=== PATIENT | male | born 1945 | race Caucasian/White ===

== ENCOUNTER → 2016-04-08 | Outpatient (REF) | payer MEDICARE, OTHER ==
[2016-04-08 12:47] LABS: ALBUMIN/GLOBULIN RATIO 1.29 (1.00-1.93); BILIRUBIN,TOTAL 0.5 MG/DL (0.2-1.0); CALCIUM LEVEL 9.3 MG/DL (8.8-10.2); CREATININE FOR GFR 1.33 MG/DL (0.70-1.30); GLOMERULAR FILTRATION RATE 56.6 (>42); POTASSIUM SERUM 4.6 MEQ/L (3.5-5.1); TOTAL PROTEIN 7.1 GM/DL (6.4-8.2)
== END ==
LOC: M LABDRAW1 11:51
PROVIDERS: ATTEND Family Medicine
DX: I11.9 Hypertensive heart disease without heart failure (principal); E11.9 Type 2 diabetes mellitus without complications

== ENCOUNTER 2016-05-05 23:57 | Emergency (ER) | payer MEDICARE, OTHER ==
[2016-05-06 01:42] LABS: BASO # 0.1 K/mm3 (0.0-0.2); BASO % 0.8 % (0.0-1.0); EOS # 0.1 K/mm3 (0.0-0.50); EOS % 1.8 % (0.0-3.0); LARGE UNSTAINED CELL # 0.2 K/mm3 (0.0-0.4); LARGE UNSTAINED CELL % 1.9 % (0.0-4.0); LYMPH # 1.5 K/mm3 (1.5-4.5); LYMPH % 19.4 % (24.0-44.0); MEAN CORPUSCULAR HEMOGLOBIN 30.7 pg (27.0-33.0); MEAN CORPUSCULAR HGB CONC 33.6 g/dl (32.0-36.5); MEAN CORPUSCULAR VOLUME 91.4 fl (80.0-96.0); MONO # 0.5 K/mm3 (0.0-0.8); MONO % 6.5 % (0.0-5.0); NEUTROPHILS # 5.4 K/mm3 (1.8-7.7); NEUTROPHILS % 69.6 % (36.0-66.0); PLATELET COUNT, AUTOMATED 285 k/mm3 (150-450); RED CELL DISTRIBUTION WIDTH 12.6 % (11.5-14.5); WHITE BLOOD COUNT 7.7 K/mm3 (4.0-10.0)
--- NOTE | 2016-05-06 01:50 | REPUSA ---
CT of the head Clinical history: fall. Protocol: Multiple axial CT images obtained with 5 mm slice thickness were obtained through the head without administration of contrast. Findings: The ventricles and sulci are symmetric but prominent in size bilaterally. There is a tiny a mount of subdural blood demonstrated in the right occipital lobe. There is no midline shift, mass eff ect, or extra-axial fluid collection. The osseous structures are unremarkable. The visualized paranas al sinuses and mastoid air cells are clear. Impression: 1. Tiny amount of acute subdural blood in the right occipital lobe. No surrounding mass effect or john ma. 2. Mild age-related atrophy and chronic small vessel ischemic disease. Dr. Tolbert was notified of these findings at 1:41 AM on 05/06/2016.
[2016-05-06 02:08] LABS: ANION GAP 9 MEQ/L (8-16); BLOOD UREA NITROGEN 37 MG/DL (7-18); CALCIUM LEVEL 8.9 MG/DL (8.8-10.2); CARBON DIOXIDE LEVEL 26 MEQ/L (21-32); CHLORIDE LEVEL 106 MEQ/L (98-107); CREATININE FOR GFR 1.51 MG/DL (0.70-1.30); GLOMERULAR FILTRATION RATE 48.9 (>42); GLUCOSE, FASTING 162 MG/DL (83-110); POTASSIUM SERUM 3.7 MEQ/L (3.5-5.1); SODIUM LEVEL 141 MEQ/L (136-145); VENOUS BASE EXCESS -0.7 (-2.0-2.0); VENOUS O2 SATURATION 94.4 % (60.0-80.0); VENOUS PARTIAL PRESSURE CO2 42.1 mmHg (38.0-50.0); VENOUS PARTIAL PRESSURE O2 73.7 mmHg (30.0-50.0); VENOUS STANDARD HCO3 23.8 MEQ/L; VENOUS TOTAL CO2 25.7 MEQ/L (24.0-28.0)
[2016-05-06 02:42] LABS: INR 0.94
[2016-05-06] MEDS ORDERED: niMODipine 30 MG CAP PO ONE (03:30)
--- NOTE | 2016-05-06 03:53 | EDDOCDS ---
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 now pt doesn't recall what happened having hard time remember names of known family.pt complains of headache occipital skull. Adult Sepsis Screening: Patient has new or worsening altered mentation (1 point). Patient's respiratory rate is less than 22. Systolic blood pressure is greater than 100. Patient has a qSOFA score of 0- Negative Sepsis Screen. Suicide/Homicide risk assessment- the patient denies having any suicidal and/or homicidal ideations and does not present with any other emotional, behavioral or mental health complaints. Status: Patient is not a sales service representative or dependent. Transition of care: patient was not received from another setting of care. 00:06 Acuity: LAURIE Level 3 cz 00:06 Method Of Arrival: Walkin/Carried/Asstd cz Triage Assessment: 00:12 General: Appears uncomfortable. Pain: Location: scalp Pain currently is 2 out of 10 on cz a pain scale. Historical: - Allergies: No known drug Allergies; - Home Meds: 1. metformin 500 mg Oral tab QID 2. atorvastatin 10 mg oral tab once daily 3. omeprazole 20 mg Oral cpDR one tab every other day 4. hydrocholorothiazide daily 12.5mg 5. escitalopram oxalate 20 mg oral tab once daily 6. aspirin 81 mg Oral tbef 7. Jardiance 10 mg oral tab - PMHx: Diabetes - NIDDM: controlled; Hypercholesterolemia; Hypertension; GERD; - Social history: Smoking status: Patient states former smoker of tobacco. No barriers to communication noted, The patient speaks fluent Jamaican, Speaks appropriately for age. - Family history: Not pertinent. - : The pt / caregiver states he / she is not on anticoagulants. Home medication list is obtained from family members. - Exposure Risk Screening:: None identified. Screenin:34 Screening information is obtained from the patient. Fall risk: At risk due to prior js15 history of falls, The following interventions are performed due to a positive Fall Risk Screen: side rails up x2, bed in low position, call light in reach, in view of nurses station, family at bedside. Assistance ADL's: requires no assistance with activities of daily living. Abuse/DV Screen: The patient / caregiver reports he/she is: not in a situation that causes fear, pain or injury. Nutritional screening: No deficits noted. Advance Directives: There is no active DNR order. home support is adequate. Assessment: 01:33 General: Appears in no apparent distress, comfortable, Behavior is appropriate for age, js15 cooperative. Pain: Denies pain. Neurological: Level of Consciousness is awake, alert, obeys commands, Oriented to person, place, time. Neurological: Reports a syncopal episode. Cardiovascular: Capillary refill < 3 seconds Heart tones S1 S2 present Rhythm is regular. Respiratory: Airway is patent Respiratory effort is even, unlabored, Respiratory pattern is regular, symmetrical, Breath sounds are clear bilaterally. GI: Abdomen is non- distended Bowel sounds present X 4 quads. Derm: Skin is pink, warm & dry. Musculoskeletal: Capillary refill < 3 seconds Swelling absent. 02:30 Reassessment: Patient appears in no apparent distress at this time. Patient denies pain js15 at this time. Pt awake and alert, talking with family at bedside and resting comfortably on stretcher, respirations even and unlabored; skin pink, warm, dry. 03:30 Reassessment: Patient appears in no apparent distress at this time. Patient denies pain js15 at this time. Pt sitting on stretcher, talking to at bedside; respirations even and unlabored; skin pink, warm, dry. Vital Signs: 00:12 BP 176 / 93; Pulse 81; Resp 16; Temp 96(O); Weight 99.79 kg; Height 5 ft. 9 in. (175.26 cz cm); 01:18 BP 162 / 93 (auto/); js15 01:19 Pulse 80 MON; Pulse Ox 96% ; js15 01:30 BP 164 / 84 (auto/); js15 01:31 Pulse 79 MON; Pulse Ox 95% ; js15 01:41 BP 142 / 83 (auto/); js15 01:41 Pulse 83 MON; Pulse Ox 95% ; js15 01:56 BP 143 / 82 (auto/); js15 01:56 Pulse 80 MON; Pulse Ox 96% ; js15 02:02 Pulse 78 MON; Pulse Ox 96% ; js15 02:02 BP 138 / 78 LA Supine (auto/reg); js15 02:03 BP 144 / 83 LA Sitting (auto/reg); Pulse 80; Resp 18; Pulse Ox 96% on R/A; js15 02:06 BP 153 / 89 (auto/); js15 02:06 Pulse 79 MON; Pulse Ox 96% ; js15 02:08 BP 153 / 89; Pulse 93; Resp 20; Pulse Ox 96% on R/A; js15 02:11 BP 153 / 76 (auto/); js15 02:11 Pulse 82 MON; Pulse Ox 95% ; js15 02:26 BP 138 / 63 (auto/); js15 02:26 Pulse 81 MON; Pulse Ox 96% ; js15 02:41 BP 136 / 64 (auto/); js15 02:42 Pulse 80 MON; Pulse Ox 95% ; js15 02:56 Pulse 82 MON; Pulse Ox 97% ; js15 02:56 BP 164 / 70 (auto/); js15 03:11 Pulse 78 MON; Pulse Ox 95% ; js15 03:11 BP 152 / 61 (auto/); js15 03:26 BP 151 / 67 (auto/); js15 03:26 Pulse 78 MON; Pulse Ox 95% ; js15 03:40 Pulse 82 MON; Pulse Ox 96% ; js15 03:41 BP 153 / 70 (auto/); js15 03:50 BP 164 / 79; Pulse 80 MON; Resp 18; Temp 98.0(O); Pulse Ox 96% on R/A; Pain 0/10; js15 00:12 Body Mass Index 32.49 (99.79 kg, 175.26 cm) Vitals: 00:12 Log In Time: May 05, 2016 at 23:57. cz ED Course: 05/05 23:58 Patient visited by Osbaldo Barnhart Reg. pm4 23:58 Patient moved to Waiting pm4 23:59 Milton Gonzalez is Private Physician. pm4 05/06 00:00 Patient moved to Triage 1 cz 00:08 Triage Initiated cz 00:19 Patient moved to 1 11 00:49 Aditya Tolbert DO is Attending Physician. mm11 00:49 Patient visited by Aditya Tolbert DO. mm11 01:04 Patient visited by Aditya Tolbert DO. mm11 01:10 Pt greeted and oriented to ED. Patient advised of names of staff involved in care, denilson location of call richards, wait times and NPO status. Accompanied by Family Member, Patient has correct armband on for positive identification. Placed in gown. Bed in low position. Call light in reach. Side rails up X2. manager monitoring on. Pulse ox on. NIBP on. 01:10 EKG done. (by ED staff). Reviewed by Aditya Tolbert DO. denilson 01:11 Patient visited by Darshana Sewell PCA. denilson 01:33 Inserted saline lock: 18 gauge in right antecubital area The patient tolerated the js15 procedure well. 01:48 Pt & Aptt Sent. js15 01:57 CT Head Without Contrast Returned. EDMS 02:04 Urinalysis Sent. js15 02:04 Urine Culture Sent. js15 02:05 Patient visited by Vane Kellogg RN. js15 02:05 The patient / caregiver is instructed regarding the plan of care and ED course. js15 02:42 [facility] Payment Agreement was scanned into [employer] and attached to record. hs2 03:50 No procedures done that require assistance. js15 Administered Medications: 03:15 Drug: NS 0.9% 1000 ml [sodium chloride 0.9 % intravenous solution] Route: IV; Rate: 100 js15 mL/hr; Site: right antecubital; 03:40 Drug: niMODipine 60 mg Route: PO; js15 Order Results: Lab Order: Basic Metabolic Profile; SPEC'M 05/06/16 01:26 Test: GLUCOSE, FASTING; Value: 162; Range: 83-110; Abnormal: Above high normal; Units: MG/DL; Status: F Test: BLOOD UREA NITROGEN; Value: 37; Range: 7-18; Abnormal: Above high normal; Units: MG/DL; Status: F Test: CREATININE FOR GFR; Value: 1.51; Range: 0.70-1.30; Abnormal: Above high normal; Units: MG/DL; Status: F Test: GLOMERULAR FILTRATION RATE; Value: 48.9; Range: >42; Status: F Test: SODIUM LEVEL; Value: 141; Range: 136-145; Units: MEQ/L; Status: F Test: POTASSIUM SERUM; Value: 3.7; Range: 3.5-5.1; Units: MEQ/L; Status: F Test: CHLORIDE LEVEL; Value: 106; Range: 98-107; Units: MEQ/L; Status: F Test: CARBON DIOXIDE LEVEL; Value: 26; Range: 21-32; Units: MEQ/L; Status: F Test: ANION GAP; Value: 9; Range: 8-16; Units: MEQ/L; Status: F Test: CALCIUM LEVEL; Value: 8.9; Range: 8.8-10.2; Units: MG/DL; Status: F Test Note: ; Units are mL/min/1.73 m2 Chronic Kidney Disease Staging per NKF: Stage I & II GFR >=60 Normal to Mildly Decreased Stage III GFR 30-59 Moderately Decreased Stage IV GFR 15-29 Severely Decreased Stage V GFR <15 Very Little GFR Left ESRD GFR <15 on CLEANER GREASER Lab Order: CBC with Diff; SPEC'M 05/06/16 01:26 Test: WHITE BLOOD COUNT; Value: 7.7; Range: 4.0-10.0; Units: K/mm3; Status: F Test: RED BLOOD COUNT; Value: 4.43; Range: 4.30-6.10; Units: M/mm3; Status: F Test: HEMOGLOBIN; Value: 13.6; Range: 14.0-18.0; Abnormal: Below low normal; Units: g/dl; Status: F Test: HEMATOCRIT; Value: 40.5; Range: 42.0-52.0; Abnormal: Below low normal; Units: %; Status: F Test: MEAN CORPUSCULAR VOLUME; Value: 91.4; Range: 80.0-96.0; Units: fl; Status: F Test: MEAN CORPUSCULAR HEMOGLOBIN; Value: 30.7; Range: 27.0-33.0; Units: pg; Status: F Test: MEAN CORPUSCULAR HGB CONC; Value: 33.6; Range: 32.0-36.5; Units: g/dl; Status: F Test: RED CELL DISTRIBUTION WIDTH; Value: 12.6; Range: 11.5-14.5; Units: %; Status: F Test: PLATELET COUNT, AUTOMATED; Value: 285; Range: 150-450; Units: k/mm3; Status: F Test: NEUTROPHILS %; Value: 69.6; Range: 36.0-66.0; Abnormal: Above high normal; Units: %; Status: F Test: LYMPH %; Value: 19.4; Range: 24.0-44.0; Abnormal: Below low normal; Units: %; Status: F Test: MONO %; Value: 6.5; Range: 0.0-5.0; Abnormal: Above high normal; Units: %; Status: F Test: EOS %; Value: 1.8; Range: 0.0-3.0; Units: %; Status: F Test: BASO %; Value: 0.8; Range: 0.0-1.0; Units: %; Status: F Test: LARGE UNSTAINED CELL %; Value: 1.9; Range: 0.0-4.0; Units: %; Status: F Test: NEUTROPHILS #; Value: 5.4; Range: 1.8-7.7; Units: K/mm3; Status: F Test: LYMPH #; Value: 1.5; Range: 1.5-4.5; Units: K/mm3; Status: F Test: MONO #; Value: 0.5; Range: 0.0-0.8; Units: K/mm3; Status: F Test: EOS #; Value: 0.1; Range: 0.0-0.50; Units: K/mm3; Status: F Test: BASO #; Value: 0.1; Range: 0.0-0.2; Units: K/mm3; Status: F Test: LARGE UNSTAINED CELL #; Value: 0.2; Range: 0.0-0.4; Units: K/mm3; Status: F Lab Order: Cardiac Injury Profile; SPEC'M 05/06/16 01:26 Test: CPK CREATINE PHOSPHOKINASE; Value: 112; Range: 39-308; Units: U/L; Status: F Test: CK-MB VALUE MASS; Value: 2.4; Range: 0.0-3.6; Units: NG/ML; Status: F Test: MB/CK RELATIVE INDEX; Value: 2.14; Range: < OR =4; Status: F Test Note: ; DIAGNOSIS CRITERIA MMB ng/ml Relative Index (RI) NON-AMI < or = 5 N/A GONZALEZ ZONE > 5 < or = 4 AMI > 5 > 4 Lab Order: Thyroid Stimulating Hormone; SPEC' 05/06/16 01:26 Test: THYROID STIMULATING HORMONE; Value: 3.530; Range: 0.358-3.740; Units: uIU/ML; Status: F Lab Order: Troponin; SPEC' 05/06/16 01:26 Test: TROPONIN I; Value: < 0.02; Range: < 0.10; Units: NG/ML; Status: F Test Note: ; Troponin I Reference Interval for [employer] LOCI: 99th Percentile= 0.00-0.045 ng/ml Risk Stratification: <= 0.10 ng/ml Decreased Risk for Adverse Clinical Events. 0.10-1.50 ng/ml Increased Risk for Adverse Clinical Events. Evaluation of additional criterion and/or repeat testing in 2-6 hours is suggested to rule out myocardial damage. >= 1.50 ng/ml Indicative of Myocardial Injury. Lab Order: Urinalysis; SPEC' 05/06/16 02:02 Test: APPEARANCE, URINE; Value: CLEAR; Range: CLEAR; Status: F Test: COLOR, URINE; Value: YELLOW; Range: YELLOW; Status: F Test: PH,URINE; Value: 5.0; Range: 5.0-9.0; Units: UNITS; Status: F Test: SPECIFIC GRAVITY URINE AUTO; Value: 1.028; Range: 1.002-1.035; Status: F Test: PROTEIN, URINE AUTO; Value: NEGATIVE; Range: NEGATIVE; Units: mg/dL; Status: F Test: GLUCOSE, URINE (UA) AUTO; Value: 3+; Range: NEGATIVE; Abnormal: Above high normal; Units: mg/dL; Status: F Test: KETONE, URINE AUTO; Value: NEGATIVE; Range: NEGATIVE; Units: mg/dL; Status: F Test: UROBILINOGEN, URINE AUTO; Value: 0.2; Range: 0.0-2.0; Units: mg/dL; Status: F Test: BILIRUBIN, URINE AUTO; Value: NEGATIVE; Range: NEGATIVE; Status: F Test: NITRITE, URINE AUTO; Value: NEGATIVE; Range: NEGATIVE; Status: F Test: LEUKOCYTE ESTERASE, URINE AUTO; Value: NEGATIVE; Range: NEGATIVE; Status: F Test: BLOOD, URINE BLOOD; Value: NEGATIVE; Range: NEGATIVE; Status: F Test: WBC, URINE AUTO; Value: 0; Range: 0-3; Units: /HPF; Status: F Test: RBC, URINE AUTO; Value: 1; Range: 0-3; Units: /HPF; Status: F Test: BACTERIA, URINE AUTO; Value: NEGATIVE; Range: NEGATIVE; Status: F Test: SQUAMOUS EPITHELIAL CELL UR AU; Value: 0; Range: 0-6; Units: /HPF; Status: F Test: HYALINE CAST, URINE AUTO; Value: 0; Range: 0-1; Units: /LPF; Status: F Lab Order: Venous Blood Gas (large pea green tube on ice); SPEC'M 05/06/16 01:26 Test: VENOUS PH; Value: 7.381; Range: 7.330-7.430; Units: UNITS; Status: F Test: VENOUS PARTIAL PRESSURE CO2; Value: 42.1; Range: 38.0-50.0; Units: mmHg; Status: F Test: VENOUS PARTIAL PRESSURE O2; Value: 73.7; Range: 30.0-50.0; Abnormal: Above high normal; Units: mmHg; Status: F Test: VENOUS TOTAL CO2; Value: 25.7; Range: 24.0-28.0; Units: MEQ/L; Status: F Test: VENOUS HCO3; Value: 24.4; Range: 23.0-27.0; Units: MEQ/L; Status: F Test: VENOUS BASE EXCESS; Value: -0.7; Range: -2.0-2.0; Status: F Test: VENOUS STANDARD HCO3; Value: 23.8; Units: MEQ/L; Status: F Test: VENOUS O2 SATURATION; Value: 94.4; Range: 60.0-80.0; Abnormal: Above high normal; Units: %; Status: F Lab Order: Osmolality, Serum; SPEC'M 05/06/16 01:26 Test: OSMOLALITY SERUM; Value: 307; Range: 280-301; Abnormal: Above high normal; Units: MOSM/KG; Status: F Lab Order: Pt & Aptt; SPEC'M 05/06/16 01:26 Test: PROTHROMBIN TIME; Value: 12.7; Range: 12.3-14.5; Units: SECONDS; Status: F Test: INR; Value: 0.94; Status: F Test: PARTIAL THROMBOPLASTIN TIME; Value: 29.8; Range: 26.6-37.1; Units: SECONDS; Status: F Test Note: ; THERAPUTIC HUMAN INR VALUES INDICATIONS NORMAL RANGES PROPHYLAXIS/TREATMENT OF: VENOUS THROMBOSIS 2.0-3.0 PULMONARY EMBOLISM 2.0-3.0 PREVENTION OF SYSTEMIC EMBOLISM FROM: TISSUE HEART VALVES 2.0-3.0 ACUTE MYOCARDIAL INFARCTION 2.0-3.0 VALVULAR HEART DISEASE 2.0-3.0 ATRIAL FIBRILLATION 2.0-3.0 MECHANICAL VALVES(HIGH RISK) 2.5-3.5 RECURRENT MYOCARDIAL INFARCTION 2.5-3.5 Lab Order: Fingerstick Blood Sugar; SPEC'M 05/06/16 01:46 Test: BEDSIDE GLUCOSE; Value: 155; Range: 83-110; Abnormal: Above high normal; Units: MG/DL; Status: F Test Note: ; RN Notified Doctor Notified Radiology Order: CT Head Without Contrast Test: CT Head Without Contrast REASON FOR EXAMINATION: Syncope; ; CT of the head; Clinical history: fall.; Protocol: Multiple axial CT images obtained with 5 mm slice thickness were obtained through the head; without administration of contrast.; Findings: The ventricles and sulci are symmetric but prominent in size bilaterally. There is a tiny a; mount of subdural blood demonstrated in the right occipital lobe. There is no midline shift, mass eff; ect, or extra-axial fluid collection. The osseous structures are unremarkable. The visualized paranas; al sinuses and mastoid air cells are clear.; Impression:; 1. Tiny amount of acute subdural blood in the right occipital lobe. No surrounding mass effect or john; ma.; 2. Mild age-related atrophy and chronic small vessel ischemic disease.; Dr. Tolbert was notified of these findings at 1:41 AM on 05/06/2016.; ; Outcome: 02:06 CT Study completed. js15 03:00 ER care complete, transfer ordered by Provider. mm11 03:09 Admission hand-off: Report called to Ivania Bardales RN. js15 03:50 Discharge Assessment: Patient awake, alert and oriented x 3. No cognitive and/or js15 functional deficits noted. Patient verbalized understanding of disposition instructions. patient administered narcotics - no. The following High Risk Discharge criteria are identified: None. [facility]red to [facility]. by EMS ground [facility] ambulance report to accompanying personnel Lizy Lorenzo EMT-P and Leisa Basurto EMT-B. Condition: unchanged. Property :Personal belongings accompany Pt. 03:52 Patient left the ED. js15 Signatures: Dispatcher [employer] EDMS Adriano Finley, RN RN cz Aditya Tolbert, DO mm11 Darshana Sewell, SENIOR DRUPAL DEVELOPER SENIOR DRUPAL DEVELOPER Vane HarrellRN RN js15 Mayelin Thomas, Reg Reg hs2 Osbaldo Barnhart, Reg Reg pm4 [facility]
--- NOTE | 2016-05-06 03:53 | EDDOCDS ---
Physician Documentation [facility] Name: Rajesh Abrams Age: 71 yrs Sex: Male : 1945 Arrival Date: 05/05/2016 Time: 23:57 Bed 1 Private MD: Milton Gonzalez MD Disposition: 05/06/16 03:00 Transfer ordered to [facility]. 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 - Reason for transfer: Higher level of care. - Accepting physician is Dr Ferro. - Condition is Unchanged. - Problem is an ongoing problem. - Symptoms are unchanged. Historical: - Allergies: No known drug Allergies; - Home Meds: 1. metformin 500 mg Oral tab QID 2. atorvastatin 10 mg oral tab once daily 3. omeprazole 20 mg Oral cpDR one tab every other day 4. hydrocholorothiazide daily 12.5mg 5. escitalopram oxalate 20 mg oral tab once daily 6. aspirin 81 mg Oral tbef 7. Jardiance 10 mg oral tab - PMHx: Diabetes - NIDDM: controlled; Hypercholesterolemia; Hypertension; GERD; - Social history: Smoking status: Patient states former smoker of tobacco. No barriers to communication noted, The patient speaks fluent [place]ine[place], Speaks appropriately for age. - Family history: Not pertinent. - : The pt / caregiver states he / she is not on anticoagulants. Home medication list is obtained from family members. - Exposure Risk Screening:: None identified. Vital Signs: 05/06 00:12 BP 176 / 93; Pulse 81; Resp 16; Temp 96(O); Weight 99.79 kg / 220 lbs; Height 5 ft. 9 cz in. (175.26 cm); 01:18 BP 162 / 93 (auto/); 01:19 Pulse 80 MON; Pulse Ox 96% ; 01:30 BP 164 / 84 (auto/); 01:31 Pulse 79 MON; Pulse Ox 95% ; 15 01:41 BP 142 / 83 (auto/); 15 01:41 Pulse 83 MON; Pulse Ox 95% ; 15 01:56 BP 143 / 82 (auto/); 15 01:56 Pulse 80 MON; Pulse Ox 96% ; 02:02 Pulse 78 MON; Pulse Ox 96% ; 02:02 BP 138 / 78 LA Supine (auto/reg); js15 02:03 BP 144 / 83 LA Sitting (auto/reg); Pulse 80; Resp 18; Pulse Ox 96% on R/A; js15 02:06 BP 153 / 89 (auto/); js15 02:06 Pulse 79 MON; Pulse Ox 96% ; js15 02:08 BP 153 / 89; Pulse 93; Resp 20; Pulse Ox 96% on R/A; js15 02:11 BP 153 / 76 (auto/); js15 02:11 Pulse 82 MON; Pulse Ox 95% ; js15 02:26 BP 138 / 63 (auto/); js15 02:26 Pulse 81 MON; Pulse Ox 96% ; js15 02:41 BP 136 / 64 (auto/); js15 02:42 Pulse 80 MON; Pulse Ox 95% ; js15 02:56 Pulse 82 MON; Pulse Ox 97% ; js15 02:56 BP 164 / 70 (auto/); js15 03:11 Pulse 78 MON; Pulse Ox 95% ; js15 03:11 BP 152 / 61 (auto/); js15 03:26 BP 151 / 67 (auto/); js15 03:26 Pulse 78 MON; Pulse Ox 95% ; js15 03:40 Pulse 82 MON; Pulse Ox 96% ; js15 03:41 BP 153 / 70 (auto/); js15 03:50 BP 164 / 79; Pulse 80 MON; Resp 18; Temp 98.0(O); Pulse Ox 96% on R/A; Pain 0/10; js15 00:12 Body Mass Index 32.49 (99.79 kg, 175.26 cm) cz MDM: 01:05 Cutter Apprentice Hand/Pulse Ox/q 15 min VS ordered. mm11 01:05 Accucheck ordered. mm11 01:05 IV Saline Lock ordered. mm11 01:05 Orthostatic VS ordered. mm11 01:05 Rhythm Strip to chart ordered. mm11 01:06 Basic Metabolic Profile Ordered. EDMS 01:06 CBC with Diff Ordered. EDMS 01:06 Cardiac Injury Profile Ordered. EDMS 01:06 Thyroid Stimulating Hormone Ordered. EDMS 01:06 Troponin Ordered. EDMS 01:06 Urinalysis Ordered. EDMS 01:06 Urine Culture Ordered. EDMS 01:07 CT Head Without Contrast Ordered. EDMS 01:07 Chest, 1 View Ordered. EDMS 01:07 ECG WITH READING ER PHYS+CARDIAG ordered. EDMS 01:12 Venous Blood Gas (large pea green tube on ice) Ordered. EDMS 01:12 Osmolality, Serum Ordered. EDMS 01:43 Pt & Aptt Ordered. EDMS 01:55 Fingerstick Blood Sugar Ordered. EDMS 02:12 Financial registration complete. hs2 02:35 Basic Metabolic Profile Reviewed. mm11 02:35 CBC with Diff Reviewed. mm11 02:35 Venous Blood Gas (large pea green tube on ice) Reviewed. mm11 02:35 Osmolality, Serum Reviewed. mm11 02:35 Fingerstick Blood Sugar Reviewed. mm11 02:35 Cardiac Injury Profile Reviewed. mm11 02:35 Thyroid Stimulating Hormone Reviewed. mm11 02:35 Troponin Reviewed. mm11 02:35 CT Head Without Contrast Reviewed. mm11 02:42 [facility] Payment Agreement was scanned into [employer] and attached to record. hs2 02:56 niMODipine 60 mg PO once; administer 1 hour before or 2 hours after meals ordered. mm11 02:56 NS 0.9% 1000 ml IV at 100 mL/hr continuous ordered. mm11 02:56 Urinalysis Reviewed. mm11 02:56 Osmolality, Serum Reviewed. mm11 02:56 Pt & Aptt Reviewed. mm11 Administered Medications: 03:15 Drug: NS 0.9% 1000 ml [sodium chloride 0.9 % intravenous solution] Route: IV; Rate: 100 js15 mL/hr; Site: right antecubital; 03:40 Drug: niMODipine 60 mg Route: PO; js15 Signatures: Dispatcher [facility] Adriano Finley RN RN cz Maynard, Matthew, DO DO mm11 Vane Kellogg RN RN js15 Mayelin Thomas, Reg Reg hs2 The chart was reviewed and I authenticate all verbal orders and agree with the evaluation and treatment provided.Attachments: 02:42 [facility] [place] Agreement hs2 MTDD
--- NOTE | 2016-05-06 08:42 | REP ---
PORTABLE CHEST X-RAY: Single view. HISTORY: Syncope. Comparison chest x-ray April 24, 2012. FINDINGS: The lungs are symmetrically aerated and clear. There is an oval shaped radiolucency projecting in the region of the azygos venous arch. This is unchanged. It measures 2.8 cm. A lipoma in the mediastinum or conceivably an overlying pulmonary parenchymal cyst could have this appearance. In any event, it is benign and unchanged from multiple radiographs dating back to 2000. Pulmonary vasculature is not increased. Heart size is normal. Pleural angles are sharp. No significant bony abnormality is seen. IMPRESSION: No active disease. Signed by Jimmy Buckley MD 05/06/2016 12:30 P
--- NOTE | 2016-05-06 20:46 | ECGEPIP ---
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
--- NOTE | 2016-05-08 04:53 | EDDOCDS ---
Physician Documentation [facility] Name: Rajesh Abrams Age: 71 yrs Sex: Male : 1945 Arrival Date: 05/05/2016 Time: 23:57 Bed 1 Private MD: Milton Gonzalez MD Disposition: 05/06/16 03:00 Transfer ordered to [facility]. 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 - Reason for transfer: Higher level of care. - Accepting physician is Dr Ferro. - Condition is Unchanged. - Problem is an ongoing problem. - Symptoms are unchanged. Historical: - Allergies: No known drug Allergies; - Home Meds: 1. metformin 500 mg Oral tab QID 2. atorvastatin 10 mg oral tab once daily 3. omeprazole 20 mg Oral cpDR one tab every other day 4. hydrocholorothiazide daily 12.5mg 5. escitalopram oxalate 20 mg oral tab once daily 6. aspirin 81 mg Oral tbef 7. Jardiance 10 mg oral tab - PMHx: Diabetes - NIDDM: controlled; Hypercholesterolemia; Hypertension; GERD; - Social history: Smoking status: Patient states former smoker of tobacco. No barriers to communication noted, The patient speaks fluent [place] Of [place], Speaks appropriately for age. - Family history: Not pertinent. - : The pt / caregiver states he / she is not on anticoagulants. Home medication list is obtained from family members. - Exposure Risk Screening:: None identified. Vital Signs: 05/06 00:12 BP 176 / 93; Pulse 81; Resp 16; Temp 96(O); Weight 99.79 kg / 220 lbs; Height 5 ft. 9 cz in. (175.26 cm); 01:18 BP 162 / 93 (auto/); 01:19 Pulse 80 MON; Pulse Ox 96% ; 01:30 BP 164 / 84 (auto/); 01:31 Pulse 79 MON; Pulse Ox 95% ; 15 01:41 BP 142 / 83 (auto/); 15 01:41 Pulse 83 MON; Pulse Ox 95% ; 15 01:56 BP 143 / 82 (auto/); 15 01:56 Pulse 80 MON; Pulse Ox 96% ; 02:02 Pulse 78 MON; Pulse Ox 96% ; 02:02 BP 138 / 78 LA Supine (auto/reg); js15 02:03 BP 144 / 83 LA Sitting (auto/reg); Pulse 80; Resp 18; Pulse Ox 96% on R/A; js15 02:06 BP 153 / 89 (auto/); js15 02:06 Pulse 79 MON; Pulse Ox 96% ; js15 02:08 BP 153 / 89; Pulse 93; Resp 20; Pulse Ox 96% on R/A; js15 02:11 BP 153 / 76 (auto/); js15 02:11 Pulse 82 MON; Pulse Ox 95% ; js15 02:26 BP 138 / 63 (auto/); js15 02:26 Pulse 81 MON; Pulse Ox 96% ; js15 02:41 BP 136 / 64 (auto/); js15 02:42 Pulse 80 MON; Pulse Ox 95% ; js15 02:56 Pulse 82 MON; Pulse Ox 97% ; js15 02:56 BP 164 / 70 (auto/); js15 03:11 Pulse 78 MON; Pulse Ox 95% ; js15 03:11 BP 152 / 61 (auto/); js15 03:26 BP 151 / 67 (auto/); js15 03:26 Pulse 78 MON; Pulse Ox 95% ; js15 03:40 Pulse 82 MON; Pulse Ox 96% ; js15 03:41 BP 153 / 70 (auto/); js15 03:50 BP 164 / 79; Pulse 80 MON; Resp 18; Temp 98.0(O); Pulse Ox 96% on R/A; Pain 0/10; js15 00:12 Body Mass Index 32.49 (99.79 kg, 175.26 cm) cz MDM: 01:05 Scaler/Pulse Ox/q 15 min VS ordered. mm11 01:05 Accucheck ordered. mm11 01:05 IV Saline Lock ordered. mm11 01:05 Orthostatic VS ordered. mm11 01:05 Rhythm Strip to chart ordered. mm11 01:06 Basic Metabolic Profile Ordered. EDMS 01:06 CBC with Diff Ordered. EDMS 01:06 Cardiac Injury Profile Ordered. EDMS 01:06 Thyroid Stimulating Hormone Ordered. EDMS 01:06 Troponin Ordered. EDMS 01:06 Urinalysis Ordered. EDMS 01:06 Urine Culture Ordered. EDMS 01:07 CT Head Without Contrast Ordered. EDMS 01:07 Chest, 1 View Ordered. EDMS 01:07 ECG WITH READING ER PHYS+CARDIAG ordered. EDMS 01:12 Venous Blood Gas (large pea green tube on ice) Ordered. EDMS 01:12 Osmolality, Serum Ordered. EDMS 01:43 Pt & Aptt Ordered. EDMS 01:55 Fingerstick Blood Sugar Ordered. EDMS 02:12 Financial registration complete. hs2 02:35 Basic Metabolic Profile Reviewed. mm11 02:35 CBC with Diff Reviewed. mm11 02:35 Venous Blood Gas (large pea green tube on ice) Reviewed. mm11 02:35 Osmolality, Serum Reviewed. mm11 02:35 Fingerstick Blood Sugar Reviewed. mm11 02:35 Cardiac Injury Profile Reviewed. mm11 02:35 Thyroid Stimulating Hormone Reviewed. mm11 02:35 Troponin Reviewed. mm11 02:35 CT Head Without Contrast Reviewed. mm11 02:42 [place] [place] Payment Agreement was scanned into [employer] and attached to record. hs2 02:56 niMODipine 60 mg PO once; administer 1 hour before or 2 hours after meals ordered. mm11 02:56 NS 0.9% 1000 ml IV at 100 mL/hr continuous ordered. mm11 02:56 Urinalysis Reviewed. mm11 02:56 Osmolality, Serum Reviewed. mm11 02:56 Pt & Aptt Reviewed. mm11 10:43 T-Sheet-- Draft Copy was scanned into [employer] and attached to record. gb 10:43 ECG/EKG was scanned into [employer] and attached to record. gb 10:44 Radiology Report was scanned into [employer] and attached to record. gb Administered Medications: 03:15 Drug: NS 0.9% 1000 ml [sodium chloride 0.9 % intravenous solution] Route: IV; Rate: 100 js15 mL/hr; Site: right antecubital; 03:40 Drug: niMODipine 60 mg Route: PO; js15 Signatures: Dispatcher MedHost EDMS Adriano Finley RN RN cz Elena Alvarez, Reg Reg gb Aditya Tolbert DO DO mm11 Vane Kellogg RN RN js15 Mayelin Thomas, Reg Reg hs2 The chart was reviewed and I authenticate all verbal orders and agree with the evaluation and treatment provided.Attachments: 02:42 [facility] [place] Payment Agreement hs2 10:43 T-Sheet-- Draft Copy gb 10:43 ECG/EKG gb Chart Complete MTDD
--- NOTE | 2016-05-08 04:53 | EDDOCDS ---
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 now pt doesn't recall what happened having hard time remember names of known family.pt complains of headache occipital skull. Adult Sepsis Screening: Patient has new or worsening altered mentation (1 point). Patient's respiratory rate is less than 22. Systolic blood pressure is greater than 100. Patient has a qSOFA score of 0- Negative Sepsis Screen. Suicide/Homicide risk assessment- the patient denies having any suicidal and/or homicidal ideations and does not present with any other emotional, behavioral or mental health complaints. Status: Patient is not a servicer or dependent. Transition of care: patient was not received from another setting of care. 00:06 Acuity: LAURIE Level 3 cz 00:06 Method Of Arrival: Walkin/Carried/Asstd cz Triage Assessment: 00:12 General: Appears uncomfortable. Pain: Location: scalp Pain currently is 2 out of 10 on cz a pain scale. Historical: - Allergies: No known drug Allergies; - Home Meds: 1. metformin 500 mg Oral tab QID 2. atorvastatin 10 mg oral tab once daily 3. omeprazole 20 mg Oral cpDR one tab every other day 4. hydrocholorothiazide daily 12.5mg 5. escitalopram oxalate 20 mg oral tab once daily 6. aspirin 81 mg Oral tbef 7. Jardiance 10 mg oral tab - PMHx: Diabetes - NIDDM: controlled; Hypercholesterolemia; Hypertension; GERD; - Social history: Smoking status: Patient states former smoker of tobacco. No barriers to communication noted, The patient speaks fluent [place], Speaks appropriately for age. - Family history: Not pertinent. - : The pt / caregiver states he / she is not on anticoagulants. Home medication list is obtained from family members. - Exposure Risk Screening:: None identified. Screenin:34 Screening information is obtained from the patient. Fall risk: At risk due to prior js15 history of falls, The following interventions are performed due to a positive Fall Risk Screen: side rails up x2, bed in low position, call light in reach, in view of nurses station, family at bedside. Assistance ADL's: requires no assistance with activities of daily living. Abuse/DV Screen: The patient / caregiver reports he/she is: not in a situation that causes fear, pain or injury. Nutritional screening: No deficits noted. Advance Directives: There is no active DNR order. home support is adequate. Assessment: 01:33 General: Appears in no apparent distress, comfortable, Behavior is appropriate for age, js15 cooperative. Pain: Denies pain. Neurological: Level of Consciousness is awake, alert, obeys commands, Oriented to person, place, time. Neurological: Reports a syncopal episode. Cardiovascular: Capillary refill < 3 seconds Heart tones S1 S2 present Rhythm is regular. Respiratory: Airway is patent Respiratory effort is even, unlabored, Respiratory pattern is regular, symmetrical, Breath sounds are clear bilaterally. GI: Abdomen is non- distended Bowel sounds present X 4 quads. Derm: Skin is pink, warm & dry. Musculoskeletal: Capillary refill < 3 seconds Swelling absent. 02:30 Reassessment: Patient appears in no apparent distress at this time. Patient denies pain js15 at this time. Pt awake and alert, talking with family at bedside and resting comfortably on stretcher, respirations even and unlabored; skin pink, warm, dry. 03:30 Reassessment: Patient appears in no apparent distress at this time. Patient denies pain js15 at this time. Pt sitting on stretcher, talking to at bedside; respirations even and unlabored; skin pink, warm, dry. Vital Signs: 00:12 BP 176 / 93; Pulse 81; Resp 16; Temp 96(O); Weight 99.79 kg; Height 5 ft. 9 in. (175.26 cz cm); 01:18 BP 162 / 93 (auto/); js15 01:19 Pulse 80 MON; Pulse Ox 96% ; js15 01:30 BP 164 / 84 (auto/); js15 01:31 Pulse 79 MON; Pulse Ox 95% ; js15 01:41 BP 142 / 83 (auto/); js15 01:41 Pulse 83 MON; Pulse Ox 95% ; js15 01:56 BP 143 / 82 (auto/); js15 01:56 Pulse 80 MON; Pulse Ox 96% ; js15 02:02 Pulse 78 MON; Pulse Ox 96% ; js15 02:02 BP 138 / 78 LA Supine (auto/reg); js15 02:03 BP 144 / 83 LA Sitting (auto/reg); Pulse 80; Resp 18; Pulse Ox 96% on R/A; js15 02:06 BP 153 / 89 (auto/); js15 02:06 Pulse 79 MON; Pulse Ox 96% ; js15 02:08 BP 153 / 89; Pulse 93; Resp 20; Pulse Ox 96% on R/A; js15 02:11 BP 153 / 76 (auto/); js15 02:11 Pulse 82 MON; Pulse Ox 95% ; js15 02:26 BP 138 / 63 (auto/); js15 02:26 Pulse 81 MON; Pulse Ox 96% ; js15 02:41 BP 136 / 64 (auto/); js15 02:42 Pulse 80 MON; Pulse Ox 95% ; js15 02:56 Pulse 82 MON; Pulse Ox 97% ; js15 02:56 BP 164 / 70 (auto/); js15 03:11 Pulse 78 MON; Pulse Ox 95% ; js15 03:11 BP 152 / 61 (auto/); js15 03:26 BP 151 / 67 (auto/); js15 03:26 Pulse 78 MON; Pulse Ox 95% ; js15 03:40 Pulse 82 MON; Pulse Ox 96% ; js15 03:41 BP 153 / 70 (auto/); js15 03:50 BP 164 / 79; Pulse 80 MON; Resp 18; Temp 98.0(O); Pulse Ox 96% on R/A; Pain 0/10; js15 00:12 Body Mass Index 32.49 (99.79 kg, 175.26 cm) Vitals: 00:12 Log In Time: May 05, 2016 at 23:57. cz ED Course: 05/05 23:58 Patient visited by Osbaldo Barnhart Reg. pm4 23:58 Patient moved to Waiting pm4 23:59 Milton Gonzalez is Private Physician. pm4 05/06 00:00 Patient moved to Triage 1 cz 00:08 Triage Initiated cz 00:19 Patient moved to 1 11 00:49 Vivian Tolbert DO is Attending Physician. mm11 00:49 Patient visited by Vivian Tolbert DO. mm11 01:04 Patient visited by Vivian Tolbert DO. mm11 01:10 Pt greeted and oriented to ED. Patient advised of names of staff involved in care, denilson location of call richards, wait times and NPO status. Accompanied by Family Member, Patient has correct armband on for positive identification. Placed in gown. Bed in low position. Call light in reach. Side rails up X2. youth nutritional monitor on. Pulse ox on. NIBP on. 01:10 EKG done. (by ED staff). Reviewed by Vivian Tolbert DO. denilson 01:11 Patient visited by Darshana Sewell PCA. denilson 01:33 Inserted saline lock: 18 gauge in right antecubital area The patient tolerated the js15 procedure well. 01:48 Pt & Aptt Sent. js15 01:57 CT Head Without Contrast Returned. EDMS 02:04 Urinalysis Sent. js15 02:04 Urine Culture Sent. js15 02:05 Patient visited by Vane Kellogg RN. js15 02:05 The patient / caregiver is instructed regarding the plan of care and ED course. js15 02:42 [facility] Payment Agreement was scanned into [employer] and attached to record. hs2 03:50 No procedures done that require assistance. js15 09:23 Chest, 1 View Returned. EDMS 10:43 T-Sheet-- Draft Copy was scanned into [employer] and attached to record. gb 10:43 ECG/EKG was scanned into [employer] and attached to record. gb 10:44 Radiology Report was scanned into [employer] and attached to record. gb 21:23 EKG-ADULT Returned. EDMS Administered Medications: 03:15 Drug: NS 0.9% 1000 ml [sodium chloride 0.9 % intravenous solution] Route: IV; Rate: 100 js15 mL/hr; Site: right antecubital; 03:40 Drug: niMODipine 60 mg Route: PO; js15 Order Results: Lab Order: Basic Metabolic Profile; SPEC'M 05/06/16 01:26 Test: GLUCOSE, FASTING; Value: 162; Range: 83-110; Abnormal: Above high normal; Units: MG/DL; Status: F Test: BLOOD UREA NITROGEN; Value: 37; Range: 7-18; Abnormal: Above high normal; Units: MG/DL; Status: F Test: CREATININE FOR GFR; Value: 1.51; Range: 0.70-1.30; Abnormal: Above high normal; Units: MG/DL; Status: F Test: GLOMERULAR FILTRATION RATE; Value: 48.9; Range: >42; Status: F Test: SODIUM LEVEL; Value: 141; Range: 136-145; Units: MEQ/L; Status: F Test: POTASSIUM SERUM; Value: 3.7; Range: 3.5-5.1; Units: MEQ/L; Status: F Test: CHLORIDE LEVEL; Value: 106; Range: 98-107; Units: MEQ/L; Status: F Test: CARBON DIOXIDE LEVEL; Value: 26; Range: 21-32; Units: MEQ/L; Status: F Test: ANION GAP; Value: 9; Range: 8-16; Units: MEQ/L; Status: F Test: CALCIUM LEVEL; Value: 8.9; Range: 8.8-10.2; Units: MG/DL; Status: F Test Note: ; Units are mL/min/1.73 m2 Chronic Kidney Disease Staging per NKF: Stage I & II GFR >=60 Normal to Mildly Decreased Stage III GFR 30-59 Moderately Decreased Stage IV GFR 15-29 Severely Decreased Stage V GFR <15 Very Little GFR Left ESRD GFR <15 on SINGLE RESOURCE BOSS Lab Order: CBC with Diff; SPEC'M 05/06/16 01:26 Test: WHITE BLOOD COUNT; Value: 7.7; Range: 4.0-10.0; Units: K/mm3; Status: F Test: RED BLOOD COUNT; Value: 4.43; Range: 4.30-6.10; Units: M/mm3; Status: F Test: HEMOGLOBIN; Value: 13.6; Range: 14.0-18.0; Abnormal: Below low normal; Units: g/dl; Status: F Test: HEMATOCRIT; Value: 40.5; Range: 42.0-52.0; Abnormal: Below low normal; Units: %; Status: F Test: MEAN CORPUSCULAR VOLUME; Value: 91.4; Range: 80.0-96.0; Units: fl; Status: F Test: MEAN CORPUSCULAR HEMOGLOBIN; Value: 30.7; Range: 27.0-33.0; Units: pg; Status: F Test: MEAN CORPUSCULAR HGB CONC; Value: 33.6; Range: 32.0-36.5; Units: g/dl; Status: F Test: RED CELL DISTRIBUTION WIDTH; Value: 12.6; Range: 11.5-14.5; Units: %; Status: F Test: PLATELET COUNT, AUTOMATED; Value: 285; Range: 150-450; Units: k/mm3; Status: F Test: NEUTROPHILS %; Value: 69.6; Range: 36.0-66.0; Abnormal: Above high normal; Units: %; Status: F Test: LYMPH %; Value: 19.4; Range: 24.0-44.0; Abnormal: Below low normal; Units: %; Status: F Test: MONO %; Value: 6.5; Range: 0.0-5.0; Abnormal: Above high normal; Units: %; Status: F Test: EOS %; Value: 1.8; Range: 0.0-3.0; Units: %; Status: F Test: BASO %; Value: 0.8; Range: 0.0-1.0; Units: %; Status: F Test: LARGE UNSTAINED CELL %; Value: 1.9; Range: 0.0-4.0; Units: %; Status: F Test: NEUTROPHILS #; Value: 5.4; Range: 1.8-7.7; Units: K/mm3; Status: F Test: LYMPH #; Value: 1.5; Range: 1.5-4.5; Units: K/mm3; Status: F Test: MONO #; Value: 0.5; Range: 0.0-0.8; Units: K/mm3; Status: F Test: EOS #; Value: 0.1; Range: 0.0-0.50; Units: K/mm3; Status: F Test: BASO #; Value: 0.1; Range: 0.0-0.2; Units: K/mm3; Status: F Test: LARGE UNSTAINED CELL #; Value: 0.2; Range: 0.0-0.4; Units: K/mm3; Status: F Lab Order: Cardiac Injury Profile; SPEC'M 05/06/16 01:26 Test: CPK CREATINE PHOSPHOKINASE; Value: 112; Range: 39-308; Units: U/L; Status: F Test: CK-MB VALUE MASS; Value: 2.4; Range: 0.0-3.6; Units: NG/ML; Status: F Test: MB/CK RELATIVE INDEX; Value: 2.14; Range: < OR =4; Status: F Test Note: ; DIAGNOSIS CRITERIA MMB ng/ml Relative Index (RI) NON-AMI < or = 5 N/A GONZALEZ ZONE > 5 < or = 4 AMI > 5 > 4 Lab Order: Thyroid Stimulating Hormone; SPEC'M 05/06/16 01: Test: THYROID STIMULATING HORMONE; Value: 3.530; Range: 0.358-3.740; Units: uIU/ML; Status: F Lab Order: Troponin; SPEC' 05/06/16: Test: TROPONIN I; Value: < 0.02; Range: < 0.10; Units: NG/ML; Status: F Test Note: ; Troponin I Reference Interval for [employer] LOCI: 99th Percentile= 0.00-0.045 ng/ml Risk Stratification: <= 0.10 ng/ml Decreased Risk for Adverse Clinical Events. 0.10-1.50 ng/ml Increased Risk for Adverse Clinical Events. Evaluation of additional criterion and/or repeat testing in 2-6 hours is suggested to rule out myocardial damage. >= 1.50 ng/ml Indicative of Myocardial Injury. Lab Order: Urinalysis; SPEC'M 05/06/16 02:02 Test: APPEARANCE, URINE; Value: CLEAR; Range: CLEAR; Status: F Test: COLOR, URINE; Value: YELLOW; Range: YELLOW; Status: F Test: PH,URINE; Value: 5.0; Range: 5.0-9.0; Units: UNITS; Status: F Test: SPECIFIC GRAVITY URINE AUTO; Value: 1.028; Range: 1.002-1.035; Status: F Test: PROTEIN, URINE AUTO; Value: NEGATIVE; Range: NEGATIVE; Units: mg/dL; Status: F Test: GLUCOSE, URINE (UA) AUTO; Value: 3+; Range: NEGATIVE; Abnormal: Above high normal; Units: mg/dL; Status: F Test: KETONE, URINE AUTO; Value: NEGATIVE; Range: NEGATIVE; Units: mg/dL; Status: F Test: UROBILINOGEN, URINE AUTO; Value: 0.2; Range: 0.0-2.0; Units: mg/dL; Status: F Test: BILIRUBIN, URINE AUTO; Value: NEGATIVE; Range: NEGATIVE; Status: F Test: NITRITE, URINE AUTO; Value: NEGATIVE; Range: NEGATIVE; Status: F Test: LEUKOCYTE ESTERASE, URINE AUTO; Value: NEGATIVE; Range: NEGATIVE; Status: F Test: BLOOD, URINE BLOOD; Value: NEGATIVE; Range: NEGATIVE; Status: F Test: WBC, URINE AUTO; Value: 0; Range: 0-3; Units: /HPF; Status: F Test: RBC, URINE AUTO; Value: 1; Range: 0-3; Units: /HPF; Status: F Test: BACTERIA, URINE AUTO; Value: NEGATIVE; Range: NEGATIVE; Status: F Test: SQUAMOUS EPITHELIAL CELL UR AU; Value: 0; Range: 0-6; Units: /HPF; Status: F Test: HYALINE CAST, URINE AUTO; Value: 0; Range: 0-1; Units: /LPF; Status: F Lab Order: Urine Culture; SPEC'M 05/06/16 02:02 Test: URINE CULTURE; Value: <EXTERNAL COMMENT eCWMed> FULL REPORT IN LAB NOTES (eCW and Medent).; Status: F Test: URINE CULTURE; Value: URINE CULTURE RESULT NO GROWTH; Status: F Lab Order: Venous Blood Gas (large pea green tube on ice); SPEC'M 05/06/16 01:26 Test: VENOUS PH; Value: 7.381; Range: 7.330-7.430; Units: UNITS; Status: F Test: VENOUS PARTIAL PRESSURE CO2; Value: 42.1; Range: 38.0-50.0; Units: mmHg; Status: F Test: VENOUS PARTIAL PRESSURE O2; Value: 73.7; Range: 30.0-50.0; Abnormal: Above high normal; Units: mmHg; Status: F Test: VENOUS TOTAL CO2; Value: 25.7; Range: 24.0-28.0; Units: MEQ/L; Status: F Test: VENOUS HCO3; Value: 24.4; Range: 23.0-27.0; Units: MEQ/L; Status: F Test: VENOUS BASE EXCESS; Value: -0.7; Range: -2.0-2.0; Status: F Test: VENOUS STANDARD HCO3; Value: 23.8; Units: MEQ/L; Status: F Test: VENOUS O2 SATURATION; Value: 94.4; Range: 60.0-80.0; Abnormal: Above high normal; Units: %; Status: F Lab Order: Osmolality, Serum; SPEC'M 05/06/16 01:26 Test: OSMOLALITY SERUM; Value: 307; Range: 280-301; Abnormal: Above high normal; Units: MOSM/KG; Status: F Lab Order: Pt & Aptt; SPEC'05/06/16 01:26 Test: PROTHROMBIN TIME; Value: 12.7; Range: 12.3-14.5; Units: SECONDS; Status: F Test: INR; Value: 0.94; Status: F Test: PARTIAL THROMBOPLASTIN TIME; Value: 29.8; Range: 26.6-37.1; Units: SECONDS; Status: F Test Note: ; THERAPUTIC HUMAN INR VALUES INDICATIONS NORMAL RANGES PROPHYLAXIS/TREATMENT OF: VENOUS THROMBOSIS 2.0-3.0 PULMONARY EMBOLISM 2.0-3.0 PREVENTION OF SYSTEMIC EMBOLISM FROM: TISSUE HEART VALVES 2.0-3.0 ACUTE MYOCARDIAL INFARCTION 2.0-3.0 VALVULAR HEART DISEASE 2.0-3.0 ATRIAL FIBRILLATION 2.0-3.0 MECHANICAL VALVES(HIGH RISK) 2.5-3.5 RECURRENT MYOCARDIAL INFARCTION 2.5-3.5 Lab Order: Fingerstick Blood Sugar; SPEC'05/06/16 01:46 Test: BEDSIDE GLUCOSE; Value: 155; Range: 83-110; Abnormal: Above high normal; Units: MG/DL; Status: F Test Note: ; RN Notified Doctor Notified Radiology Order: CT Head Without Contrast Test: CT Head Without Contrast REASON FOR EXAMINATION: Syncope; ; CT of the head; Clinical history: fall.; Protocol: Multiple axial CT images obtained with 5 mm slice thickness were obtained through the head; without administration of contrast.; Findings: The ventricles and sulci are symmetric but prominent in size bilaterally. There is a tiny a; mount of subdural blood demonstrated in the right occipital lobe. There is no midline shift, mass eff; ect, or extra-axial fluid collection. The osseous structures are unremarkable. The visualized paranas; al sinuses and mastoid air cells are clear.; Impression:; 1. Tiny amount of acute subdural blood in the right occipital lobe. No surrounding mass effect or john; ma.; 2. Mild age-related atrophy and chronic small vessel ischemic disease.; Dr. Tolbert was notified of these findings at 1:41 AM on 05/06/2016.; ; Radiology Order: Chest, 1 View Test: Chest, 1 View REASON FOR EXAMINATION: Syncope; PORTABLE CHEST X-RAY: Single view.; ; HISTORY: Syncope.; ; Comparison chest x-ray April 24, 2012.; ; FINDINGS: The lungs are symmetrically aerated and clear. There is an oval; shaped radiolucency projecting in the region of the azygos venous arch. This is; unchanged. It measures 2.8 cm. A lipoma in the mediastinum or conceivably an; overlying pulmonary parenchymal cyst could have this appearance. In any event,; it is benign and unchanged from multiple radiographs dating back to 2000.; Pulmonary vasculature is not increased. Heart size is normal. Pleural angles; are sharp. 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 js15 03:00 ER care complete, transfer ordered by Provider. mm11 03:09 Admission hand-off: Report called to Ivania Bardales RN. js15 03:50 Discharge Assessment: Patient awake, alert and oriented x 3. No cognitive and/or js15 functional deficits noted. Patient verbalized understanding of disposition instructions. patient administered narcotics - no. The following High Risk Discharge criteria are identified: None. Transferred to [facility]. by EMS ground [place] ambulance report to accompanying personnel Lizy Lorenzo EMT-P and Leisa Basurto EMT-B. Condition: unchanged. Property :Personal belongings accompany Pt. 03:52 Patient left the ED. 15 Signatures: Dispatcher [employer] EDMS Adriano Finley, RN RN Elena Espinoza, Reg Reg gb Vivian Tolbert, DO DO mm11 Darshana Sewell, ELECTRONICS WARFARE TECHNICIAN ELECTRONICS WARFARE TECHNICIAN Vane Harrell,BERTHA RN js15 Mayelin Thomas, Reg Reg hs2 Osbaldo Barnhart, Reg Reg pm4 Chart Complete [facility]
--- NOTE | 2016-05-08 04:53 | EDDOCDS ---
Physician Documentation [facility] Name: Rajesh Abrams Age: 71 yrs Sex: Male : 1945 Arrival Date: 05/05/2016 Time: 23:57 Bed 1 Private MD: Milton Gonzalez MD Disposition: 05/06/16 03:00 Transfer ordered to [facility]. 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 - Reason for transfer: Higher level of care. - Accepting physician is Dr Ferro. - Condition is Unchanged. - Problem is an ongoing problem. - Symptoms are unchanged. Historical: - Allergies: No known drug Allergies; - Home Meds: 1. metformin 500 mg Oral tab QID 2. atorvastatin 10 mg oral tab once daily 3. omeprazole 20 mg Oral cpDR one tab every other day 4. hydrocholorothiazide daily 12.5mg 5. escitalopram oxalate 20 mg oral tab once daily 6. aspirin 81 mg Oral tbef 7. Jardiance 10 mg oral tab - PMHx: Diabetes - NIDDM: controlled; Hypercholesterolemia; Hypertension; GERD; - Social history: Smoking status: Patient states former smoker of tobacco. No barriers to communication noted, The patient speaks fluent [place], Speaks appropriately for age. - Family history: Not pertinent. - : The pt / caregiver states he / she is not on anticoagulants. Home medication list is obtained from family members. - Exposure Risk Screening:: None identified. Vital Signs: 05/06 00:12 BP 176 / 93; Pulse 81; Resp 16; Temp 96(O); Weight 99.79 kg / 220 lbs; Height 5 ft. 9 cz in. (175.26 cm); 01:18 BP 162 / 93 (auto/); 01:19 Pulse 80 MON; Pulse Ox 96% ; 01:30 BP 164 / 84 (auto/); 01:31 Pulse 79 MON; Pulse Ox 95% ; 15 01:41 BP 142 / 83 (auto/); 15 01:41 Pulse 83 MON; Pulse Ox 95% ; 15 01:56 BP 143 / 82 (auto/); 15 01:56 Pulse 80 MON; Pulse Ox 96% ; 02:02 Pulse 78 MON; Pulse Ox 96% ; 02:02 BP 138 / 78 LA Supine (auto/reg); js15 02:03 BP 144 / 83 LA Sitting (auto/reg); Pulse 80; Resp 18; Pulse Ox 96% on R/A; js15 02:06 BP 153 / 89 (auto/); js15 02:06 Pulse 79 MON; Pulse Ox 96% ; js15 02:08 BP 153 / 89; Pulse 93; Resp 20; Pulse Ox 96% on R/A; js15 02:11 BP 153 / 76 (auto/); js15 02:11 Pulse 82 MON; Pulse Ox 95% ; js15 02:26 BP 138 / 63 (auto/); js15 02:26 Pulse 81 MON; Pulse Ox 96% ; js15 02:41 BP 136 / 64 (auto/); js15 02:42 Pulse 80 MON; Pulse Ox 95% ; js15 02:56 Pulse 82 MON; Pulse Ox 97% ; js15 02:56 BP 164 / 70 (auto/); js15 03:11 Pulse 78 MON; Pulse Ox 95% ; js15 03:11 BP 152 / 61 (auto/); js15 03:26 BP 151 / 67 (auto/); js15 03:26 Pulse 78 MON; Pulse Ox 95% ; js15 03:40 Pulse 82 MON; Pulse Ox 96% ; js15 03:41 BP 153 / 70 (auto/); js15 03:50 BP 164 / 79; Pulse 80 MON; Resp 18; Temp 98.0(O); Pulse Ox 96% on R/A; Pain 0/10; js15 00:12 Body Mass Index 32.49 (99.79 kg, 175.26 cm) cz MDM: 01:05 Telephoner/Pulse Ox/q 15 min VS ordered. mm11 01:05 Accucheck ordered. mm11 01:05 IV Saline Lock ordered. mm11 01:05 Orthostatic VS ordered. mm11 01:05 Rhythm Strip to chart ordered. mm11 01:06 Basic Metabolic Profile Ordered. EDMS 01:06 CBC with Diff Ordered. EDMS 01:06 Cardiac Injury Profile Ordered. EDMS 01:06 Thyroid Stimulating Hormone Ordered. EDMS 01:06 Troponin Ordered. EDMS 01:06 Urinalysis Ordered. EDMS 01:06 Urine Culture Ordered. EDMS 01:07 CT Head Without Contrast Ordered. EDMS 01:07 Chest, 1 View Ordered. EDMS 01:07 ECG WITH READING ER PHYS+CARDIAG ordered. EDMS 01:12 Venous Blood Gas (large pea green tube on ice) Ordered. EDMS 01:12 Osmolality, Serum Ordered. EDMS 01:43 Pt & Aptt Ordered. EDMS 01:55 Fingerstick Blood Sugar Ordered. EDMS 02:12 Financial registration complete. hs2 02:35 Basic Metabolic Profile Reviewed. mm11 02:35 CBC with Diff Reviewed. mm11 02:35 Venous Blood Gas (large pea green tube on ice) Reviewed. mm11 02:35 Osmolality, Serum Reviewed. mm11 02:35 Fingerstick Blood Sugar Reviewed. mm11 02:35 Cardiac Injury Profile Reviewed. mm11 02:35 Thyroid Stimulating Hormone Reviewed. mm11 02:35 Troponin Reviewed. mm11 02:35 CT Head Without Contrast Reviewed. mm11 02:42 [facility] Payment Agreement was scanned into [employer] and attached to record. hs2 02:56 niMODipine 60 mg PO once; administer 1 hour before or 2 hours after meals ordered. mm11 02:56 NS 0.9% 1000 ml IV at 100 mL/hr continuous ordered. mm11 02:56 Urinalysis Reviewed. mm11 02:56 Osmolality, Serum Reviewed. mm11 02:56 Pt & Aptt Reviewed. mm11 10:43 T-Sheet-- Draft Copy was scanned into [employer] and attached to record. gb 10:43 ECG/EKG was scanned into [employer] and attached to record. gb 10:44 Radiology Report was scanned into [employer] and attached to record. gb Administered Medications: 03:15 Drug: NS 0.9% 1000 ml [sodium chloride 0.9 % intravenous solution] Route: IV; Rate: 100 js15 mL/hr; Site: right antecubital; 03:40 Drug: niMODipine 60 mg Route: PO; js15 Signatures: Dispatcher [employer] EDMS Adriano Finley RN RN cz Elena Alvarez, Reg Reg gb Aditya Tolbert DO DO mm11 Vane Kellogg RN RN js15 Mayelin Thomas, Reg Reg hs2 The chart was reviewed and I authenticate all verbal orders and agree with the evaluation and treatment provided.Attachments: 02:42 [facility] Payment Agreement hs2 10:43 T-Sheet-- Draft Copy gb 10:43 ECG/EKG gb Chart Complete MTDD
== END 2016-05-06 03:52 | disposition short-term general hospital (02) ==
LOC: M ED 23:57
DX: S06.6X0A Traumatic subarachnoid hemorrhage without loss of consciousness, initial encounter (principal); W18.09XA Striking against other object with subsequent fall, initial encounter; Y92.003 Bedroom of unspecified non-institutional (private) residence as the place of occurrence of the external cause; Y93.89 Activity, other specified; Y99.8 Other external cause status; I73.9 Peripheral vascular disease, unspecified; I10 Essential (primary) hypertension; E11.9 Type 2 diabetes mellitus without complications; E78.00 Pure hypercholesterolemia, unspecified; K21.9 Gastro-esophageal reflux disease without esophagitis; Z87.891 Personal history of nicotine dependence; Z79.82 Long term (current) use of aspirin; Z79.899 Other long term (current) drug therapy

== ENCOUNTER → 2016-05-15 | Outpatient (CLI) | payer MEDICARE, BC, OTHER ==
--- NOTE | 2016-05-15 14:15 | REP ---
Right orbit: Two views. History: Screening for metallic foreign body prior to MRI. Comparison is made with head CT study from May 06, 2016. Findings: There is a 1.1 cm calcified nodule in the right frontal sinus consistent with a benign osteoma. This correlates with the CT finding. Orbital margins are intact. Paranasal sinuses are otherwise clear as visualized. There is no evidence of intraorbital or periorbital opaque foreign body. Impression: Small benign osteoma right frontal sinus. No evidence of opaque foreign body. Signed by Jimmy Buckley MD 05/15/2016 04:33 P
--- NOTE | 2016-05-15 16:37 | REP ---
MRI BRAIN WITHOUT AND WITH CONTRAST: HISTORY: Intraventricular mass. Contrast: ProHance 10 mL. COMPARISON: CT 05/06/2016 An 8 mm focus of mixed signal intensity is present in the right occipital lobe. This is iso- and hyperintense on T1 and iso- and hypointense on T2-weighted images and is consistent with chronic hemorrhage. There is no surrounding edema. Several punctate areas of increased signal intensity on T2-weighted images are present in the subcortical white matter. This represents small vessel ischemic disease. There is no acute intraparenchymal hemorrhage, infarct or midline shift. The ventricular system and cortical sulci as well as subarachnoid space in the posterior fossa are dilated consistent with mild volume loss. A 9 mm mass, iso- and hyperintense on T1 and T2-weighted images respectively is present in the anterior horn of the left lateral ventricle. There is no enhancement with contrast. There is no hydrocephalus or cerebral collection. The sinuses are clear. IMPRESSION:. 1. There is a small 8 mm focus of chronic hemorrhage in the right occipital lobe. 2. Minimal small vessel ischemic disease. 3. Mild volume loss. 4. 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 There is no hydrocephalus. Signed by Hugh Laura MD 05/15/2016 04:49 P
== END ==
LOC: M RAD 13:12
PROVIDERS: ATTEND Family Medicine
DX: I61.9 Nontraumatic intracerebral hemorrhage, unspecified (principal); I73.9 Peripheral vascular disease, unspecified; D43.2 Neoplasm of uncertain behavior of brain, unspecified; Z13.89 Encounter for screening for other disorder
CPT/HCPCS: 70200; 70553; A9576

== ENCOUNTER → 2016-07-28 | Outpatient (REF) | payer MEDICARE, BC, OTHER ==
[2016-07-28 12:40] LABS: ANION GAP 6 MEQ/L (8-16); BLOOD UREA NITROGEN 26 MG/DL (7-18); CALCIUM LEVEL 9.2 MG/DL (8.8-10.2); CARBON DIOXIDE LEVEL 30 MEQ/L (21-32); CHLORIDE LEVEL 106 MEQ/L (98-107); CREATININE FOR GFR 1.19 MG/DL (0.70-1.30); GLOMERULAR FILTRATION RATE > 60.0 (>42); GLUCOSE, FASTING 130 MG/DL (83-110); POTASSIUM SERUM 4.5 MEQ/L (3.5-5.1); SODIUM LEVEL 142 MEQ/L (136-145)
== END ==
LOC: M LABDRAW1 11:55
PROVIDERS: ATTEND Family Medicine
DX: E11.9 Type 2 diabetes mellitus without complications (principal)

== ENCOUNTER → 2017-01-14 | Outpatient (REF) | payer MEDICARE, OTHER ==
[2017-01-14 12:25] LABS: ALBUMIN 3.9 GM/DL (3.2-5.2); ALBUMIN/GLOBULIN RATIO 1.39 (1.00-1.93); ALKALINE PHOSPHATASE 80 U/L (45-117); ALT/SGPT 28 U/L (12-78); ANION GAP 7 MEQ/L (8-16); AST/SGOT 13 U/L (15-37); BILIRUBIN,TOTAL 0.4 MG/DL (0.2-1.0); BLOOD UREA NITROGEN 25 MG/DL (7-18); CARBON DIOXIDE LEVEL 27 MEQ/L (21-32); CHLORIDE LEVEL 104 MEQ/L (98-107); CHOLESTEROL LEVEL 165 MG/DL (<200); CREATININE FOR GFR 1.16 MG/DL (0.70-1.30); GLOMERULAR FILTRATION RATE > 60.0 (>42); GLUCOSE, FASTING 142 MG/DL (83-110); POTASSIUM SERUM 4.4 MEQ/L (3.5-5.1); SODIUM LEVEL 138 MEQ/L (136-145); TOTAL PROTEIN 6.7 GM/DL (6.4-8.2); TRIGLYCERIDES LEVEL 130 MG/DL (<150)
== END ==
LOC: M LABDRAW1 10:09
PROVIDERS: ATTEND Family Medicine
DX: E11.9 Type 2 diabetes mellitus without complications (principal); E78.2 Mixed hyperlipidemia

== ENCOUNTER → 2017-06-04 | Outpatient (REF) | payer MEDICARE, OTHER ==
[2017-06-04 13:44] LABS: PROSTATIC SPECIFIC AG MONITOR < 0.01 NG/ML (< 4.0)
== END ==
LOC: M LABDRAW1 11:59
DX: Z85.46 Personal history of malignant neoplasm of prostate (principal)
CPT/HCPCS: 84153

== ENCOUNTER → 2017-07-29 | Outpatient (REF) | payer MEDICARE, OTHER ==
[2017-07-29 12:03] LABS: ALBUMIN 3.9 GM/DL (3.2-5.2); ALBUMIN/GLOBULIN RATIO 1.22 (1.00-1.93); ALKALINE PHOSPHATASE 81 U/L (45-117); ALT/SGPT 25 U/L (12-78); ANION GAP 7 MEQ/L (8-16); AST/SGOT 16 U/L (7-37); BILIRUBIN,TOTAL 0.7 MG/DL (0.2-1.0); BLOOD UREA NITROGEN 33 MG/DL (7-18); CALCIUM LEVEL 9.1 MG/DL (8.8-10.2); CARBON DIOXIDE LEVEL 26 MEQ/L (21-32); CHLORIDE LEVEL 109 MEQ/L (98-107); CREATININE FOR GFR 1.27 MG/DL (0.70-1.30); GLOMERULAR FILTRATION RATE 59.5 (>42); GLUCOSE, FASTING 133 MG/DL (70-100); POTASSIUM SERUM 4.1 MEQ/L (3.5-5.1); PROSTATIC SPECIFIC AG MONITOR < 0.01 NG/ML (< 4.0); SODIUM LEVEL 142 MEQ/L (136-145); TOTAL PROTEIN 7.1 GM/DL (6.4-8.2)
[2017-07-29 13:20] LABS: ESTIMATED AVERAGE GLUCOSE 146 MG/DL (60-110); HEMOGLOBIN A1c 6.7 %
== END ==
LOC: M LABDRAW1 10:24
DX: E11.9 Type 2 diabetes mellitus without complications (principal); Z85.46 Personal history of malignant neoplasm of prostate
CPT/HCPCS: 80053

== ENCOUNTER → 2017-10-29 | Outpatient (REF) | payer MEDICARE, OTHER ==
[2017-10-29 13:12] LABS: ANION GAP 8 MEQ/L (8-16); BLOOD UREA NITROGEN 22 MG/DL (7-18); CALCIUM LEVEL 9.2 MG/DL (8.8-10.2); CARBON DIOXIDE LEVEL 29 MEQ/L (21-32); CHLORIDE LEVEL 104 MEQ/L (98-107); CREATININE FOR GFR 1.42 MG/DL (0.70-1.30); GLOMERULAR FILTRATION RATE 52.3 (>42); GLUCOSE, FASTING 153 MG/DL (70-100); POTASSIUM SERUM 4.2 MEQ/L (3.5-5.1); SODIUM LEVEL 141 MEQ/L (136-145)
== END ==
LOC: M LABDRAW1 12:00
DX: Z00.00 Encounter for general adult medical examination without abnormal findings (principal)
CPT/HCPCS: 80048

== ENCOUNTER → 2018-01-27 | Outpatient (REF) | payer MEDICARE, OTHER ==
[2018-01-27 12:09] LABS: HEMATOCRIT 44.4 % (42.0-52.0); HEMOGLOBIN 14.7 g/dl (13.5-17.5); MEAN CORPUSCULAR HGB CONC 33.1 g/dl (32.0-36.5); MEAN CORPUSCULAR VOLUME 96.5 fl (80.0-96.0); PLATELET COUNT, AUTOMATED 268 10^3/uL (150-450); RED CELL DISTRIBUTION WIDTH 12.4 % (11.5-14.5); WHITE BLOOD COUNT 7.3 10^3/uL (4.0-10.0)
[2018-01-27 12:35] LABS: ALBUMIN 4.1 GM/DL (3.2-5.2); ALBUMIN/GLOBULIN RATIO 1.52 (1.00-1.93); ALKALINE PHOSPHATASE 80 U/L (45-117); ALT/SGPT 27 U/L (12-78); ANION GAP 9 MEQ/L (8-16); AST/SGOT 16 U/L (7-37); BILIRUBIN,TOTAL 0.5 MG/DL (0.2-1.0); BLOOD UREA NITROGEN 30 MG/DL (7-18); CALCIUM LEVEL 9.4 MG/DL (8.8-10.2); CARBON DIOXIDE LEVEL 28 MEQ/L (21-32); CHLORIDE LEVEL 103 MEQ/L (98-107); CHOLESTEROL LEVEL 183 MG/DL (<200); CHOLESTEROL RISK RATIO 3.978 (<5); CREATININE FOR GFR 1.29 MG/DL (0.70-1.30); FREE T4 1.04 NG/DL (0.76-1.46); GLOMERULAR FILTRATION RATE 58.5 (>42); GLUCOSE, FASTING 126 MG/DL (70-100); HDL CHOLESTEROL 46 MG/DL (>40); LDL CHOLESTEROL 95 MG/DL (<100); NON-HDL-C 137 MG/DL; POTASSIUM SERUM 4.3 MEQ/L (3.5-5.1); SODIUM LEVEL 140 MEQ/L (136-145); TOTAL PROTEIN 6.8 GM/DL (6.4-8.2); TRIGLYCERIDES LEVEL 208 MG/DL (<150)
[2018-01-27 12:55] LABS: MAU/CREAT RATIO 9.8 MCG/MG (0.0-30.0)
[2018-01-27 13:11] LABS: ESTIMATED AVERAGE GLUCOSE 157 MG/DL (60-110); HEMOGLOBIN A1c 7.1 %
== END ==
LOC: M LABDRAW1 11:45
DX: F32.9 Major depressive disorder, single episode, unspecified (principal); I11.9 Hypertensive heart disease without heart failure; E78.2 Mixed hyperlipidemia; Z79.899 Other long term (current) drug therapy
CPT/HCPCS: 84443

== ENCOUNTER → 2018-07-08 | Outpatient (REF) | payer MEDICARE, OTHER | LOC: M LABDRAW1 12:40 | PROVIDERS: ATTEND Nurse Practitioner Adult Health | DX: Z85.46 Personal history of malignant neoplasm of prostate (principal) ==

== ENCOUNTER → 2018-07-27 | Outpatient (REF) | payer MEDICARE, OTHER ==
[2018-07-27 19:55] LABS: BASO # 0.1 10^3/uL (0.0-0.2); BASO % 0.6 % (0.0-1.0); EOS # 0.2 10^3/uL (0.0-0.50); EOS % 2.3 % (0.0-3.0); HEMATOCRIT 46.9 % (42.0-52.0); HEMOGLOBIN 15.5 g/dl (13.5-17.5); LYMPH # 1.7 10^3/uL (1.5-4.5); LYMPH % 21.4 % (24.0-44.0); MEAN CORPUSCULAR HEMOGLOBIN 30.9 pg (27.0-33.0); MEAN CORPUSCULAR VOLUME 93.4 fl (80.0-96.0); MONO # 0.8 10^3/uL (0.0-0.8); MONO % 9.4 % (0.0-5.0); NEUTROPHILS # 5.2 10^3/uL (1.8-7.7); NEUTROPHILS % 65.2 % (36.0-66.0); PLATELET COUNT, AUTOMATED 290 10^3/uL (150-450); RED BLOOD COUNT 5.02 10^6/uL (4.30-6.10); WHITE BLOOD COUNT 7.9 10^3/uL (4.0-10.0)
[2018-07-27 20:21] LABS: CALCIUM LEVEL 9.8 MG/DL (8.8-10.2); CREATININE FOR GFR 1.38 MG/DL (0.70-1.30); GLOMERULAR FILTRATION RATE 53.9 (>42); POTASSIUM SERUM 4.7 MEQ/L (3.5-5.1)
== END ==
LOC: M SFHCADAM 14:19
PROVIDERS: ATTEND Physician Assistant Medical
DX: Z01.818 Encounter for other preprocedural examination (principal); S83.221A Peripheral tear of medial meniscus, current injury, right knee, initial encounter; X58.XXXA Exposure to other specified factors, initial encounter; Y92.9 Unspecified place or not applicable
CPT/HCPCS: 80048; 85025; 93005; G0463

== ENCOUNTER → 2018-08-06 | Outpatient (REF) | payer MEDICARE, OTHER ==
[2018-08-06 12:30] LABS: CALCIUM LEVEL 9.1 MG/DL (8.8-10.2); CREATININE FOR GFR 1.32 MG/DL (0.70-1.30); GLOMERULAR FILTRATION RATE 56.8 (>42); POTASSIUM SERUM 4.8 MEQ/L (3.5-5.1)
[2018-08-06 12:37] LABS: HEMOGLOBIN A1c 7.2 %
== END ==
LOC: M LABDRAW1 11:34
PROVIDERS: ATTEND Family Medicine
DX: E11.9 Type 2 diabetes mellitus without complications (principal)

== ENCOUNTER → 2018-11-15 | Outpatient (REF) | payer MEDICARE, OTHER ==
[2018-11-15 09:49] LABS: CALCIUM LEVEL 9.2 MG/DL (8.8-10.2); CREATININE FOR GFR 1.83 MG/DL (0.70-1.30); GLOMERULAR FILTRATION RATE 38.9 (>42); POTASSIUM SERUM 4.3 MEQ/L (3.5-5.1)
[2018-11-15 11:53] LABS: HEMOGLOBIN A1c 7.3 %
== END ==
LOC: M LABDRAW1 08:17
PROVIDERS: ATTEND Family Medicine
DX: E11.9 Type 2 diabetes mellitus without complications (principal)

== ENCOUNTER → 2019-01-31 | Outpatient (REF) | payer MEDICARE, OTHER ==
[2019-01-31 12:43] LABS: CALCIUM LEVEL 9.2 MG/DL (8.8-10.2); CREATININE FOR GFR 1.36 MG/DL (0.70-1.30); GLOMERULAR FILTRATION RATE 54.8 (>42); POTASSIUM SERUM 4.7 MEQ/L (3.5-5.1)
[2019-01-31 12:51] LABS: HEMOGLOBIN A1c 7.2 %
== END ==
LOC: M LABDRAW1 11:47
PROVIDERS: ATTEND Physician Assistant
DX: E11.9 Type 2 diabetes mellitus without complications (principal); N18.3 Chronic kidney disease, stage 3 (moderate)

== ENCOUNTER → 2019-02-02 | Outpatient (REF) | payer MEDICARE, OTHER ==
[2019-02-02 12:48] LABS: HEMATOCRIT 47.3 % (42.0-52.0); HEMOGLOBIN 15.6 g/dl (13.5-17.5); MEAN CORPUSCULAR HEMOGLOBIN 32.3 pg (27.0-33.0); MEAN CORPUSCULAR VOLUME 97.9 fl (80.0-96.0); PLATELET COUNT, AUTOMATED 289 10^3/uL (150-450); RED BLOOD COUNT 4.83 10^6/uL (4.30-6.10); WHITE BLOOD COUNT 6.4 10^3/uL (4.0-10.0)
[2019-02-02 13:10] LABS: ALBUMIN 4.2 GM/DL (3.2-5.2); BILIRUBIN,TOTAL 0.7 MG/DL (0.2-1.0); CALCIUM LEVEL 9.4 MG/DL (8.8-10.2); CREATININE FOR GFR 1.35 MG/DL (0.70-1.30); FREE T4 0.93 NG/DL (0.76-1.46); GLOMERULAR FILTRATION RATE 55.3 (>42); POTASSIUM SERUM 4.3 MEQ/L (3.5-5.1); THYROID STIMULATING HORMONE 1.62 uIU/ML (0.358-3.740); TOTAL PROTEIN 7.2 GM/DL (6.4-8.2)
== END ==
LOC: M SFHCADAM 10:27
PROVIDERS: ATTEND Family Medicine
DX: F32.9 Major depressive disorder, single episode, unspecified (principal)

== ENCOUNTER 2019-05-22 19:06 | Emergency (ER) | payer MEDICARE, OTHER ==
[~2019-05-22] VITALS: Ht 175.3 cm; Wt 100.0 kg
[2019-05-22 19:06] VITALS: BP 156/75
[2019-05-22] MEDS ORDERED: HYDR12.55 PO (19:13)
[2019-05-22] MEDS ORDERED: ASPI81CH33 PO (19:13)
[2019-05-22] MEDS ORDERED: ATOR1TAB19 PO (19:13)
[2019-05-22] MEDS ORDERED: ESCI5SOL3 PO (19:13)
[2019-05-22] MEDS ORDERED: METF500T13 PO (19:13)
[2019-05-22] MEDS ORDERED: OMEP10CASR PO (19:13)
[2019-05-22] MEDS ORDERED: DERMABOND TOPICAL SKIN ADHESIVE TOP ONE (20:15)
[2019-05-22] MEDS ORDERED: ADACEL/BOOSTRIX VACCINE (DIPHTH/PERTUSS/ACELL/TETANUS)0.5ML SYR (90715) IM ONE (20:30)
== END 2019-05-22 20:35 | disposition home or self-care (01) ==
LOC: M ED 19:06
DX: S61.412A Laceration without foreign body of left hand, initial encounter (principal); Y92.009 Unspecified place in unspecified non-institutional (private) residence as the place of occurrence of the external cause; Y93.G1 Activity, food preparation and clean up; Y99.9 Unspecified external cause status; W26.0XXA Contact with knife, initial encounter; E78.5 Hyperlipidemia, unspecified; E11.9 Type 2 diabetes mellitus without complications; I10 Essential (primary) hypertension; K21.9 Gastro-esophageal reflux disease without esophagitis; Z79.82 Long term (current) use of aspirin; Z79.84 Long term (current) use of oral hypoglycemic drugs; Z79.899 Other long term (current) drug therapy

== ENCOUNTER → 2019-07-27 | Outpatient (REF) | payer MEDICARE, OTHER ==
[~2019-07-27] MED LIST: ASPI81CH33 PO; ATOR1TAB19 PO; ESCI5SOL3 PO; HYDR12.55 PO; METF500T13 PO; OMEP10CASR PO
[2019-07-27 13:17] LABS: ALBUMIN 4.1 GM/DL (3.2-5.2); BILIRUBIN,TOTAL 0.5 MG/DL (0.2-1.0); CALCIUM LEVEL 9.8 MG/DL (8.8-10.2); CHOLESTEROL RISK RATIO 4.377 (<5); CREATININE FOR GFR 1.29 MG/DL (0.70-1.30); GLOMERULAR FILTRATION RATE 58.1 (>42); POTASSIUM SERUM 5.2 MEQ/L (3.5-5.1); TOTAL PROTEIN 7.5 GM/DL (6.4-8.2)
[2019-07-27 13:29] LABS: HEMOGLOBIN A1c 7.4 %; MAU/CREAT RATIO 9.6 MCG/MG (0.0-30.0)
== END ==
LOC: M SFHCADAM 09:21
PROVIDERS: ATTEND Family Medicine
DX: E11.9 Type 2 diabetes mellitus without complications (principal); E78.2 Mixed hyperlipidemia

== ENCOUNTER → 2019-08-02 | Outpatient (REF) | payer MEDICARE, OTHER | LOC: M LABDRWAD 12:41 | PROVIDERS: ATTEND Nurse Practitioner Adult Health | DX: Z85.46 Personal history of malignant neoplasm of prostate (principal); Z08 Encounter for follow-up examination after completed treatment for malignant neoplasm ==

== ENCOUNTER → 2020-02-14 | Outpatient (REF) | payer MEDICARE, OTHER ==
[2020-02-14 13:11] LABS: CALCIUM LEVEL 9.8 MG/DL (8.8-10.2); CREATININE FOR GFR 1.33 MG/DL (0.70-1.30); GLOMERULAR FILTRATION RATE 56.1 (>42); POTASSIUM SERUM 4.4 MEQ/L (3.5-5.1)
[2020-02-14 13:39] LABS: HEMOGLOBIN A1c 8.1 %
== END ==
LOC: M SFHCADAM 08:20
PROVIDERS: ATTEND Family Medicine
DX: E11.9 Type 2 diabetes mellitus without complications (principal)

== ENCOUNTER → 2020-05-23 | Outpatient (REF) | payer MEDICARE, OTHER ==
[2020-05-23 13:43] LABS: BLOOD UREA NITROGEN 29 MG/DL (7-18); CALCIUM LEVEL 9.3 MG/DL (8.8-10.2); CARBON DIOXIDE LEVEL 29 MEQ/L (21-32); CHLORIDE LEVEL 105 MEQ/L (98-107); CREATININE FOR GFR 1.15 MG/DL (0.70-1.30); GLOMERULAR FILTRATION RATE > 60.0 (>42); GLUCOSE, FASTING 109 MG/DL (70-100); POTASSIUM SERUM 4.9 MEQ/L (3.5-5.1); SODIUM LEVEL 141 MEQ/L (136-145)
[2020-05-23 14:46] LABS: HEMOGLOBIN A1c 6.1 %
== END ==
LOC: M SFHCADAM 08:21
PROVIDERS: ATTEND Family Medicine
DX: E11.9 Type 2 diabetes mellitus without complications (principal)

== ENCOUNTER → 2020-11-16 | Outpatient (REF) | payer MEDICARE, OTHER ==
[2020-11-16 12:48] LABS: HEMATOCRIT 45.9 % (42.0-52.0); HEMOGLOBIN 15.2 g/dl (13.5-17.5); MEAN CORPUSCULAR HEMOGLOBIN 31.9 pg (27.0-33.0); MEAN CORPUSCULAR HGB CONC 33.1 g/dl (32.0-36.5); MEAN CORPUSCULAR VOLUME 96.2 fl (80.0-96.0); PLATELET COUNT, AUTOMATED 238 10^3/uL (150-450); RED BLOOD COUNT 4.77 10^6/uL (4.30-6.10); WHITE BLOOD COUNT 6.4 10^3/uL (4.0-10.0)
[2020-11-16 13:27] LABS: ALBUMIN 3.9 GM/DL (3.2-5.2); ALT/SGPT 30 U/L (12-78); BILIRUBIN,TOTAL 0.4 MG/DL (0.2-1.0); BLOOD UREA NITROGEN 28 MG/DL (7-18); CALCIUM LEVEL 9.5 MG/DL (8.8-10.2); CARBON DIOXIDE LEVEL 26 MEQ/L (21-32); CHLORIDE LEVEL 109 MEQ/L (98-107); CHOLESTEROL LEVEL 188 MG/DL (<200); CHOLESTEROL RISK RATIO 3.916 (<5); FREE T4 0.94 NG/DL (0.76-1.46); GLOMERULAR FILTRATION RATE > 60.0 (>42); GLUCOSE, FASTING 138 MG/DL (70-100); HDL CHOLESTEROL 48 MG/DL (>40); LDL CHOLESTEROL 114 MG/DL (<100); NON-HDL-C 140 MG/DL; POTASSIUM SERUM 4.9 MEQ/L (3.5-5.1); PROSTATIC SPECIFIC AG MONITOR < 0.01 NG/ML (< 4.00); SODIUM LEVEL 142 MEQ/L (136-145); TOTAL PROTEIN 6.8 GM/DL (6.4-8.2); TRIGLYCERIDES LEVEL 130 MG/DL (<150)
[2020-11-16 13:30] LABS: CREATININE, URINE 85.5 MG/DL; MALB URINE SIEMENS 6.7 MG/L; MAU/CREAT RATIO 7.8 MCG/MG (0.0-30.0)
[2020-11-16 13:57] LABS: HEMOGLOBIN A1c 6.3 %
== END ==
LOC: M SFHCADAM 08:05
PROVIDERS: ATTEND Family Medicine
DX: F32.9 Major depressive disorder, single episode, unspecified (principal); I11.9 Hypertensive heart disease without heart failure; E78.2 Mixed hyperlipidemia; E11.9 Type 2 diabetes mellitus without complications; Z85.46 Personal history of malignant neoplasm of prostate

== ENCOUNTER → 2021-03-11 | Outpatient (REF) | payer MEDICARE, OTHER ==
[2021-03-11 13:34] LABS: CALCIUM LEVEL 9.5 MG/DL (8.8-10.2); CREATININE FOR GFR 1.28 MG/DL (0.70-1.30); GLOMERULAR FILTRATION RATE 58.5 (>42); POTASSIUM SERUM 4.9 MEQ/L (3.5-5.1)
[2021-03-11 14:39] LABS: HEMOGLOBIN A1c 7.2 %
== END ==
LOC: M SFHCADAM 08:06
PROVIDERS: ATTEND Family Medicine
DX: E11.9 Type 2 diabetes mellitus without complications (principal)

== ENCOUNTER → 2021-08-01 | Outpatient (CLI) | payer MEDICARE, OTHER | LOC: M ADAMS 09:13 | PROVIDERS: ATTEND Nurse Practitioner Adult Health | DX: Z85.46 Personal history of malignant neoplasm of prostate (principal) ==

== ENCOUNTER → 2021-09-09 | Outpatient (REF) | payer MEDICARE, OTHER ==
[2021-09-09 14:08] LABS: ALT/SGPT 28 U/L (12-78); BILIRUBIN,TOTAL 0.5 MG/DL (0.2-1.0); BLOOD UREA NITROGEN 29 MG/DL (7-18); CALCIUM LEVEL 9.9 MG/DL (8.8-10.2); CARBON DIOXIDE LEVEL 28 MEQ/L (21-32); CHLORIDE LEVEL 109 MEQ/L (98-107); CHOLESTEROL LEVEL 198 MG/DL (<200); CHOLESTEROL RISK RATIO 3.413 (<5); CREATININE FOR GFR 1.38 MG/DL (0.70-1.30); GLOMERULAR FILTRATION RATE 53.5 (>42); GLUCOSE, FASTING 179 MG/DL (70-100); HDL CHOLESTEROL 58 MG/DL (>40); LDL CHOLESTEROL 114 MG/DL (<100); NON-HDL-C 140 MG/DL; POTASSIUM SERUM 4.7 MEQ/L (3.5-5.1); PROSTATIC SPECIFIC AG MONITOR < 0.01 NG/ML (< 4.00); SODIUM LEVEL 142 MEQ/L (136-145); TOTAL PROTEIN 7.2 GM/DL (6.4-8.2); TRIGLYCERIDES LEVEL 132 MG/DL (<150)
[2021-09-09 14:16] LABS: MAU/CREAT RATIO 9.3 MCG/MG (0.0-30.0)
[2021-09-09 15:29] LABS: HEMOGLOBIN A1c 7.4 %
== END ==
LOC: M SFHCADAM 08:21
PROVIDERS: ATTEND Family Medicine
DX: E11.9 Type 2 diabetes mellitus without complications (principal); E78.2 Mixed hyperlipidemia; Z85.46 Personal history of malignant neoplasm of prostate

== ENCOUNTER → 2021-12-19 | Outpatient (REF) | payer MEDICARE, OTHER ==
[2021-12-19 14:40] LABS: HEMOGLOBIN A1c 7.5 %
[2021-12-19 14:42] LABS: CALCIUM LEVEL 9.7 MG/DL (8.8-10.2); CREATININE FOR GFR 1.36 MG/DL (0.70-1.30); GLOMERULAR FILTRATION RATE 54.4 (>42)
== END ==
LOC: M SFHCADAM 08:22
PROVIDERS: ATTEND Family Medicine
DX: E11.9 Type 2 diabetes mellitus without complications (principal)

== ENCOUNTER → 2022-06-27 | Outpatient (REF) | payer MEDICARE, OTHER ==
[2022-06-27 14:36] LABS: HEMATOCRIT 44.2 % (42.0-52.0); HEMOGLOBIN 14.5 g/dl (13.5-17.5); MEAN CORPUSCULAR HEMOGLOBIN 31.7 pg (27.0-33.0); MEAN CORPUSCULAR HGB CONC 32.8 g/dl (32.0-36.5); MEAN CORPUSCULAR VOLUME 96.5 fl (80.0-96.0); PLATELET COUNT, AUTOMATED 254 10^3/uL (150-450); RED BLOOD COUNT 4.58 10^6/uL (4.30-6.10); WHITE BLOOD COUNT 7.4 10^3/uL (4.0-10.0)
[2022-06-27 15:00] LABS: CREATININE, URINE 86.1 MG/DL; MALB URINE SIEMENS < 3.0 MG/L; MAU/CREAT RATIO 3.4 MCG/MG (0.0-30.0)
[2022-06-27 15:04] LABS: ALBUMIN 3.8 G/DL (3.2-5.2); ALKALINE PHOSPHATASE 83 U/L (46-116); ALT/SGPT 20 U/L (7.0-40); AST/SGOT 16 U/L (<34); BILIRUBIN,TOTAL 0.4 MG/DL (0.3-1.2); BLOOD UREA NITROGEN 29 MG/DL (9-23); CALCIUM LEVEL 9.2 MG/DL (8.3-10.6); CARBON DIOXIDE LEVEL 27 MMOL/L (20-31); CHLORIDE LEVEL 106 MMOL/L (98-107); CHOLESTEROL LEVEL 157 MG/DL (<200); CHOLESTEROL RISK RATIO 3.34 (<5); CREATININE FOR GFR 1.15 MG/DL (0.70-1.30); GLOMERULAR FILTRATION RATE > 60.0 (>42); GLUCOSE, FASTING 152 MG/DL (74-106); HDL CHOLESTEROL 46.9 MG/DL (>40); LDL CHOLESTEROL 84.7 MG/DL (<100); NON-HDL-C 110.1 MG/DL; POTASSIUM SERUM 5.1 MMOL/L (3.5-5.1); SODIUM LEVEL 140 MMOL/L (136-145); TOTAL PROTEIN 6.4 G/DL (5.7-8.2); TRIGLYCERIDES LEVEL 127 MG/DL (<150)
[2022-06-27 15:49] LABS: HEMOGLOBIN A1c 7.6 % (4.0-6.0)
== END ==
LOC: M SFHCADAM 07:26
PROVIDERS: ATTEND Family Medicine
DX: E11.9 Type 2 diabetes mellitus without complications (principal); E78.2 Mixed hyperlipidemia; I11.9 Hypertensive heart disease without heart failure; F32.9 Major depressive disorder, single episode, unspecified

== ENCOUNTER → 2022-08-01 | Outpatient (REF) | payer MEDICARE, OTHER | LOC: M LABDRWAD 12:43 | PROVIDERS: ATTEND Nurse Practitioner Adult Health | DX: Z85.46 Personal history of malignant neoplasm of prostate (principal) ==

== ENCOUNTER → 2022-10-17 | Outpatient (REF) | payer MEDICARE, OTHER ==
[2022-10-17 14:05] LABS: HEMOGLOBIN A1c 6.5 % (4.0-6.0)
[2022-10-17 14:28] LABS: BLOOD UREA NITROGEN 26 MG/DL (9-23); CALCIUM LEVEL 9.5 MG/DL (8.3-10.6); CARBON DIOXIDE LEVEL 27 MMOL/L (20-31); CHLORIDE LEVEL 107 MMOL/L (98-107); CREATININE FOR GFR 1.19 MG/DL (0.70-1.30); GLOMERULAR FILTRATION RATE > 60.0 (>42); GLUCOSE, FASTING 133 MG/DL (74-106); POTASSIUM SERUM 4.7 MMOL/L (3.5-5.1); SODIUM LEVEL 141 MMOL/L (136-145)
== END ==
LOC: M SFHCADAM 08:07
PROVIDERS: ATTEND Family Medicine
DX: E11.9 Type 2 diabetes mellitus without complications (principal)

== ENCOUNTER → 2023-04-24 | Outpatient (REF) | payer MEDICARE, OTHER ==
[2023-04-24 13:23] LABS: CALCIUM LEVEL 9.6 MG/DL (8.3-10.6); CREATININE FOR GFR 1.3 MG/DL (0.70-1.30); POTASSIUM SERUM 4.7 MMOL/L (3.5-5.1)
[2023-04-24 13:32] LABS: HEMOGLOBIN A1c 6.6 % (4.0-6.0)
== END ==
LOC: M SFHCADAM 07:40
PROVIDERS: ATTEND Family Medicine
DX: E11.9 Type 2 diabetes mellitus without complications (principal)

== ENCOUNTER → 2023-08-03 | Outpatient (REF) | payer MEDICARE, OTHER, BC | LOC: M LABDRWAD 11:41 → M PLALAB 11:41 | PROVIDERS: ATTEND Nurse Practitioner Adult Health | DX: Z08 Encounter for follow-up examination after completed treatment for malignant neoplasm (principal); Z85.46 Personal history of malignant neoplasm of prostate ==

== ENCOUNTER → 2023-12-04 | Outpatient (CLI) | payer MEDICARE, OTHER, BC ==
[2023-12-04 10:47] LABS: HEMATOCRIT 43.8 % (42.0-52.0); HEMOGLOBIN 14.6 g/dl (13.5-17.5); MEAN CORPUSCULAR HGB CONC 33.3 g/dl (32.0-36.5); MEAN CORPUSCULAR VOLUME 96.1 fl (80.0-96.0); PLATELET COUNT, AUTOMATED 266 10^3/uL (150-450); RED BLOOD COUNT 4.56 10^6/uL (4.30-6.10)
[2023-12-04 10:56] LABS: ALBUMIN 4.1 G/DL (3.2-5.2); BILIRUBIN,TOTAL 0.5 MG/DL (0.3-1.2); CALCIUM LEVEL 9.7 MG/DL (8.3-10.6); CHOLESTEROL RISK RATIO 3.34 (<5); CREATININE FOR GFR 1.31 MG/DL (0.70-1.30); FOLATE 23.67 NG/ML (>5.4); GLOMERULAR FILTRATION RATE 56.5 (>42); HDL CHOLESTEROL 47.5 MG/DL (>40); LDL CHOLESTEROL 90.5 MG/DL (<100); NON-HDL-C 111.5 MG/DL; POTASSIUM SERUM 4.9 MMOL/L (3.5-5.1); THYROID STIMULATING HORMONE 1.814 uIU/ML (0.55-4.78); TOTAL PROTEIN 6.9 G/DL (5.7-8.2)
[2023-12-04 10:57] LABS: TOTAL 25(OH) VITAMIN D 28.8 NG/ML (20.0-100.0)
[2023-12-04 10:58] LABS: FREE T4 1.49 NG/DL (0.89-1.76)
[2023-12-04 11:08] LABS: CREATININE, URINE 95.6 MG/DL; MALB URINE SIEMENS < 3.0 MG/L; MAU/CREAT RATIO 3.1 MCG/MG (0.0-30.0)
[2023-12-04 11:12] LABS: HEMOGLOBIN A1c 6.7 % (4.0-6.0)
[2023-12-08 13:22] LABS: FREE KAPPA LIGHT CHAINS SERUM 26.2 mg/L (3.3-19.4); FREE LAMBDA LIGHT CHAINS SERUM 19.9 mg/L (5.7-26.3); KAPPA/LAMBDA RATIO SERUM 1.32 (0.26-1.65)
== END ==
LOC: M PLALAB 08:04
PROVIDERS: ATTEND Family Medicine
DX: E11.22 Type 2 diabetes mellitus with diabetic chronic kidney disease (principal); N18.1 Chronic kidney disease, stage 1; E78.2 Mixed hyperlipidemia; E11.42 Type 2 diabetes mellitus with diabetic polyneuropathy; Z79.84 Long term (current) use of oral hypoglycemic drugs

== ENCOUNTER → 2024-02-02 | Outpatient (CLI) | payer MEDICARE, OTHER ==
[2024-02-02 11:30] LABS: CALCIUM LEVEL 9.7 MG/DL (8.3-10.6); CREATININE FOR GFR 1.3 MG/DL (0.70-1.30); POTASSIUM SERUM 4.6 MMOL/L (3.5-5.1)
[2024-02-02 12:18] LABS: HEMOGLOBIN A1c 6.8 % (4.0-6.0)
== END ==
LOC: M PLALAB 07:42
PROVIDERS: ATTEND Family Medicine
DX: E11.9 Type 2 diabetes mellitus without complications (principal)

== ENCOUNTER → 2024-06-08 | Outpatient (CLI) | payer MEDICARE, BC ==
[2024-06-08 15:35] LABS: BASO # 0.1 10^3/uL (0.0-0.2); BASO % 0.9 % (0.0-1.0); EOS # 0.2 10^3/uL (0.0-0.5); EOS % 2.3 % (0.0-3.0); HEMATOCRIT 44.6 % (42.0-52.0); HEMOGLOBIN 14.9 g/dl (13.5-17.5); LYMPH # 1.7 10^3/uL (1.5-5.0); LYMPH % 25.4 % (24.0-44.0); MEAN CORPUSCULAR HEMOGLOBIN 31.2 pg (27.0-33.0); MEAN CORPUSCULAR HGB CONC 33.4 g/dl (32.0-36.5); MEAN CORPUSCULAR VOLUME 93.5 fl (80.0-96.0); MONO # 0.5 10^3/uL (0.0-0.8); MONO % 6.9 % (2.0-8.0); NEUTROPHILS # 4.2 10^3/uL (1.5-8.5); NEUTROPHILS % 63.4 % (36.0-66.0); PLATELET COUNT, AUTOMATED 364 10^3/uL (150-450); RED BLOOD COUNT 4.77 10^6/uL (4.30-6.10); WHITE BLOOD COUNT 6.6 10^3/uL (4.0-10.0)
[2024-06-08 15:44] LABS: RHEUMATOID FACTOR QUANT < 3.5 IU/ML (<14)
[2024-06-08 15:45] LABS: VITAMIN B12 LEVEL 369 PG/ML (211-911)
[2024-06-08 15:46] LABS: ALKALINE PHOSPHATASE 93 U/L (40-129); ALT/SGPT 26 U/L (7.0-40); AST/SGOT 13 U/L (<34); BILIRUBIN,TOTAL 0.5 MG/DL (0.3-1.2); BLOOD UREA NITROGEN 23 MG/DL (9-23); CALCIUM LEVEL 9.2 MG/DL (8.3-10.6); CARBON DIOXIDE LEVEL 26 MMOL/L (20-31); CHLORIDE LEVEL 106 MMOL/L (98-107); CREATININE FOR GFR 1.27 MG/DL (0.70-1.30); GLOMERULAR FILTRATION RATE 58.4 (>42); GLUCOSE, FASTING 171 MG/DL (74-106); POTASSIUM SERUM 4.3 MMOL/L (3.5-5.1); SODIUM LEVEL 143 MMOL/L (136-145)
[2024-06-08 15:47] LABS: CPK CREATINE PHOSPHOKINASE 69 U/L (46-171); FOLATE > 24.00 NG/ML (>5.4)
[2024-06-08 15:54] LABS: HEMOGLOBIN A1c 6.4 % (4.0-6.0)
[2024-06-09 19:48] LABS: SSA SJOGRENS A <1.0 NEG AI (<1.0 NEG); SSB SJOGRENS B <1.0 NEG AI (<1.0 NEG)
[2024-06-10 09:53] LABS: ANA SCREEN, IFA NEGATIVE (NEGATIVE)
[2024-06-10 15:17] LABS: ANGIOTENSIN 1 CONVERTING ENZYM 15 U/L (9-67)
[2024-06-11 18:12] LABS: ARSENIC BLOOD < 3 mcg/L (<23); LEAD BLOOD 1.2 mcg/dL (<3.5); LYME TOTAL ANTIBODY CIA <= 0.90 Index (<=0.90); MERCURY BLOOD < 4 mcg/L (<=10)
== END ==
LOC: M PLALAB 10:39
PROVIDERS: ATTEND Nurse Practitioner Family
DX: R20.2 Paresthesia of skin (principal); G25.79 Other drug induced movement disorders; Z79.899 Other long term (current) drug therapy; E11.42 Type 2 diabetes mellitus with diabetic polyneuropathy

== ENCOUNTER → 2024-08-04 | Outpatient (CLI) | payer MEDICARE, BC ==
[2024-08-04 14:14] LABS: HEMATOCRIT 45.1 % (42.0-52.0); MEAN CORPUSCULAR HEMOGLOBIN 31.9 pg (27.0-33.0); MEAN CORPUSCULAR HGB CONC 33.3 g/dl (32.0-36.5); PLATELET COUNT, AUTOMATED 282 10^3/uL (150-450); WHITE BLOOD COUNT 7.4 10^3/uL (4.0-10.0)
[2024-08-04 14:38] LABS: HEMOGLOBIN A1c 6.6 % (4.0-6.0)
[2024-08-04 14:44] LABS: ALBUMIN 4.1 G/DL (3.2-5.2); BILIRUBIN,TOTAL 0.7 MG/DL (0.3-1.2); CALCIUM LEVEL 9.5 MG/DL (8.3-10.6); CHOLESTEROL RISK RATIO 3.84 (<5); CREATININE FOR GFR 1.35 MG/DL (0.70-1.30); GLOMERULAR FILTRATION RATE 53.7 (>42); HDL CHOLESTEROL 47.3 MG/DL (>40); LDL CHOLESTEROL 107.1 MG/DL (<100); NON-HDL-C 134.7 MG/DL; POTASSIUM SERUM 4.7 MMOL/L (3.5-5.1)
[2024-08-04 15:43] LABS: CREATININE, URINE 150.2 MG/DL; MAU/CREAT RATIO 2.6 MCG/MG (0.0-30.0)
== END ==
LOC: M PLALAB 11:57
PROVIDERS: ATTEND Family Medicine
DX: N18.31 Chronic kidney disease, stage 3a (principal); E11.9 Type 2 diabetes mellitus without complications; E78.2 Mixed hyperlipidemia

== ENCOUNTER → 2025-02-14 | Outpatient (CLI) | payer MEDICARE, BC ==
[2025-02-14 15:23] LABS: PLATELET COUNT, AUTOMATED 266 10^3/uL (150-450)
[2025-02-14 15:52] LABS: ESTIMATED AVERAGE GLUCOSE 163.0 MG/DL (60-110)
[2025-02-14 15:54] LABS: MALB URINE SIEMENS 34.0 MG/L
[2025-02-14 15:56] LABS: ALT/SGPT 26.0 U/L (7.0-40); AST/SGOT 23.0 U/L (<34); CALCIUM LEVEL 9.1 MG/DL (8.3-10.6); CARBON DIOXIDE LEVEL 27.0 MMOL/L (20-31); CHLORIDE LEVEL 103.0 MMOL/L (98-107); CHOLESTEROL LEVEL 161.0 MG/DL (<200); CHOLESTEROL RISK RATIO 3.43 (<5); CREATININE FOR GFR 1.48 MG/DL (0.70-1.30); GLOMERULAR FILTRATION RATE 48.1 (>42); LDL CHOLESTEROL 89.7 MG/DL (<100); NON-HDL-C 114.1 MG/DL; POTASSIUM SERUM 4.3 MMOL/L (3.5-5.1); SODIUM LEVEL 140.0 MMOL/L (136-145); TRIGLYCERIDES LEVEL 122.0 MG/DL (<150)
[2025-02-14 15:58] LABS: FREE T4 1.48 NG/DL (0.89-1.76)
[2025-02-14 16:07] LABS: CREATININE, URINE 290.8 MG/DL; MAU/CREAT RATIO 11.6 MCG/MG (0.0-30.0)
== END ==
LOC: M PLALAB 12:58
PROVIDERS: ATTEND Family Medicine
DX: E78.2 Mixed hyperlipidemia (principal); F32.9 Major depressive disorder, single episode, unspecified; E11.9 Type 2 diabetes mellitus without complications

== ENCOUNTER 2025-03-21 10:13 | Day surgery (SDC) | payer MEDICARE, BC ==
[~2025-03-21] VITALS: Ht 175.3 cm; Wt 95.3 kg
[~2025-03-21 10:13] MED LIST changes: +JARD1TAB PO; +LEXA1TAB2 PO; +LISI5TAB11 PO; +OMEP-173 PO; +PREG100C2 PO; +TIRZ10PE SC
[2025-03-21 11:56] VITALS: TEMP 96.8
[2025-03-21 12:11] VITALS: BP 131/77; O2SAT 98
== END 2025-03-21 12:31 | disposition home or self-care (01) ==
LOC: M OPP 10:13
PROVIDERS: ATTEND Surgery
DX: Z12.11 Encounter for screening for malignant neoplasm of colon (principal); D12.5 Benign neoplasm of sigmoid colon; D12.0 Benign neoplasm of cecum; Z79.82 Long term (current) use of aspirin; Z79.84 Long term (current) use of oral hypoglycemic drugs; Z79.85 Long-term (current) use of injectable non-insulin antidiabetic drugs; Z79.899 Other long term (current) drug therapy